=== PATIENT | male | born 1970 | race Caucasian/White ===

== ENCOUNTER 2017-07-17 10:50 | Inpatient (IN) | payer MEDICARE ==
[2017-07-17] MEDS ORDERED: SODIUM CHLORIDE 0.9% 1,000 ML IV STA ×2 (11:49)
--- NOTE | 2017-07-17 11:54 | ED ---
General Adult HPI - General Chief complaint: Psychiatric Symptoms Stated complaint: WEIGHTLOSS, NOT EATING Time Seen by Provider: 07/17/17 11:26 Source: patient, family, RN notes reviewed Mode of arrival: wheelchair Limitations: physical limitation - History of Present Illness Initial comments: Patient is a pleasant 46-year-old male presenting to the emergency Department with family. There is concerned the patient has not been eating. Patient does admit to not eating for the past 52 days. Patient states he was trying to make a 0.2 a group of people. Patient states he stopped eating so they would leave him alone and stop bothering him. Patient states they did not stop bothering him so he continued to not eat. Patient has only had water intake over the past 52 days. Patient states he told them if they did not stop bothering him he would continue to not eat until he . Patient admits to feeling generally weak. Patient has muscle spasms. Patient is only able to walk a couple of feet. Patient has dark black urine. Patient denies suicidal ideation however does state that he would continue this until he . Brother adds that patient does have a history of similar problems previously once associated with psychiatric problems. Patient previously had denied this. Brother states patient has been acting paranoid and feels there is electrodes in his brain. - Related Data Home Medications Medication Instructions Recorded Confirmed Doxazosin [Cardura] 1 mg PO DAILY 07/17/17 07/17/17 Morphine Sulfate [Morphine Sulfate 30 mg PO TID 07/17/17 07/17/17 ER] predniSONE 12.5 mg PO DAILY 07/17/17 07/17/17 Allergies Allergy/AdvReac Type Severity Reaction Status Date / Time No Known Allergies Allergy Verified 07/17/17 11:39 Review of Systems ROS Statement: Those systems with pertinent positive or pertinent negative responses have been documented in the HPI. ROS Other: All systems not noted in ROS Statement are negative. Constitutional: Denies: fever Eyes: Denies: eye pain ENT: Denies: ear pain Respiratory: Denies: cough Cardiovascular: Denies: chest pain Endocrine: Reports: fatigue Gastrointestinal: Denies: abdominal pain Genitourinary: Denies: dysuria Musculoskeletal: Denies: back pain Skin: Denies: rash Neurological: Reports: weakness (Generalized) Past Medical History Additional Past Medical History / Comment(s): back pain History of Any Multi-Drug Resistant Organisms: None Reported Past Surgical History: Back Surgery, Tonsillectomy Past Anesthesia/Blood Transfusion Reactions: No Reported Reaction Past Psychological History: Depression Smoking Status: Former smoker Past Alcohol Use History: None Reported Past Drug Use History: None Reported General Exam Limitations: physical limitation General appearance: alert, cachectic Head exam: Present: atraumatic Eye exam: Present: normal appearance, PERRL ENT exam: Present: normal oropharynx Neck exam: Present: normal inspection Respiratory exam: Present: normal lung sounds bilaterally Cardiovascular Exam: Present: tachycardia GI/Abdominal exam: Present: soft. Absent: distended, tenderness Extremities exam: Present: normal inspection Neurological exam: Present: alert. Absent: motor sensory deficit Psychiatric exam: Present: normal affect, normal mood Skin exam: Present: normal color Course Vital Signs 07/17/17 07/17/17 07/17/17 11:06 12:54 13:35 Temperature 97.7 F 98.1 F Pulse Rate 154 H 84 87 Respiratory 18 18 16 Rate Blood Pressure 114/80 132/81 121/82 O2 Sat by Pulse 100 94 L 100 Oximetry EKG Findings - EKG Comments: EKG Findings:: Sinus tachycardia 139. NV 136. QRS 90. QT 36. QTc 435. Normal axis. Inferior Q waves. No acute ST change. Medical Decision Making - Medical Decision Making Patient reevaluated and updated. Case was discussed in detail with Dr. Jung, who will admit for hospital call. Further evaluation will need to be done in the liver. Consult placed for GI and psychiatry. - Lab Data Result diagrams: 07/17/17 11:21 07/17/17 11:21 Lab Results 07/17/17 07/17/17 07/17/17 Range/Units 11:21 11:21 11:21 WBC 14.1 H (3.8-10.6) k/uL RBC 5.50 (4.30-5.90) m/uL Hgb 16.0 (13.0-17.5) gm/dL Hct 48.3 (39.0-53.0) % MCV 87.8 (80.0-100.0) fL MCH 29.0 (25.0-35.0) pg MCHC 33.1 (31.0-37.0) g/dL RDW 14.0 (11.5-15.5) % Plt Count 472 H (150-450) k/uL Neutrophils % 83 % Lymphocytes % 11 % Monocytes % 5 % Eosinophils % 0 % Basophils % 0 % Neutrophils # 11.7 H (1.3-7.7) k/uL Lymphocytes # 1.5 (1.0-4.8) k/uL Monocytes # 0.6 (0-1.0) k/uL Eosinophils # 0.1 (0-0.7) k/uL Basophils # 0.1 (0-0.2) k/uL PT 12.3 H (9.0-12.0) sec INR 1.2 H (<1.2) APTT 28.4 (22.0-30.0) sec Sodium 133 L (137-145) mmol/L Potassium 3.3 L (3.5-5.1) mmol/L Chloride 81 L (98-107) mmol/L Carbon Dioxide 19 L (22-30) mmol/L Anion Gap 33 mmol/L BUN 24 H (9-20) mg/dL Creatinine 1.22 (0.66-1.25) mg/dL Est GFR (MDRD) Af Amer >60 (>60 ml/min/1.73 sqM) Est GFR (MDRD) Non-Af >60 (>60 ml/min/1.73 sqM) Glucose 180 H (74-99) mg/dL Calcium 10.1 (8.4-10.2) mg/dL Ionized Calcium Elodia 4.0 L (4.5-5.3) mg/dL Phosphorus 4.0 (2.5-4.5) mg/dL Magnesium 2.6 H (1.6-2.3) mg/dL Total Bilirubin 5.6 H (0.2-1.3) mg/dL AST 273 H (17-59) U/L ALT 125 H (21-72) U/L Alkaline Phosphatase 2131 H (38-126) U/L Creatine Kinase (55-170) U/L Total Protein 7.7 (6.3-8.2) g/dL Albumin 4.7 (3.5-5.0) g/dL Lipase (23-300) U/L TSH 0.467 (0.465-4.680) mIU/L Serum Alcohol <10 mg/dL 07/17/17 07/17/17 Range/Units 11:21 11:21 WBC (3.8-10.6) k/uL RBC (4.30-5.90) m/uL Hgb (13.0-17.5) gm/dL Hct (39.0-53.0) % MCV (80.0-100.0) fL MCH (25.0-35.0) pg MCHC (31.0-37.0) g/dL RDW (11.5-15.5) % Plt Count (150-450) k/uL Neutrophils % % Lymphocytes % % Monocytes % % Eosinophils % % Basophils % % Neutrophils # (1.3-7.7) k/uL Lymphocytes # (1.0-4.8) k/uL Monocytes # (0-1.0) k/uL Eosinophils # (0-0.7) k/uL Basophils # (0-0.2) k/uL PT (9.0-12.0) sec INR (<1.2) APTT (22.0-30.0) sec Sodium (137-145) mmol/L Potassium (3.5-5.1) mmol/L Chloride (98-107) mmol/L Carbon Dioxide (22-30) mmol/L Anion Gap mmol/L BUN (9-20) mg/dL Creatinine (0.66-1.25) mg/dL Est GFR (MDRD) Af Amer (>60 ml/min/1.73 sqM) Est GFR (MDRD) Non-Af (>60 ml/min/1.73 sqM) Glucose (74-99) mg/dL Calcium (8.4-10.2) mg/dL Ionized Calcium Elodia (4.5-5.3) mg/dL Phosphorus (2.5-4.5) mg/dL Magnesium (1.6-2.3) mg/dL Total Bilirubin (0.2-1.3) mg/dL AST (17-59) U/L ALT (21-72) U/L Alkaline Phosphatase (38-126) U/L Creatine Kinase 34 L (55-170) U/L Total Protein (6.3-8.2) g/dL Albumin (3.5-5.0) g/dL Lipase 610 H (23-300) U/L TSH (0.465-4.680) mIU/L Serum Alcohol mg/dL - Radiology Data Radiology results: image reviewed (Chest x-ray shows no acute process) Disposition Clinical Impression: Starvation, Acute liver failure, Acute psychosis Disposition: [facility] Condition: Serious Referrals: Abhinav Case DO [Primary Care Provider] - 1-2 days Decision Time: 14:42
--- NOTE | 2017-07-17 12:17 | XR ---
EXAMINATION TYPE: XR chest 2V DATE OF EXAM: 07/17/2017 COMPARISON: NONE HISTORY: Weakness TECHNIQUE: Frontal and lateral views of the chest are obtained. FINDINGS: There are overlying cardiac leads. Cardiomediastinal silhouette, pulmonary vascularity and otto within normal limits. No airspace disease, pneumothorax, or pleural effusion. IMPRESSION: No acute cardiopulmonary process.
[2017-07-17 12:19] LABS: Basophils # (A) 0.1 k/uL (0-0.2); Basophils % (A) 0 %; CH 30.1; CHCM 34.5; Eosinophils # (A) 0.1 k/uL (0-0.7); Eosinophils % (A) 0 %; HCT 48.3 % (39.0-53.0); HDW 2.73; Luc # (Auto) 0.12; Luc % (Auto) 1; Lymphocytes # (A) 1.5 k/uL (1.0-4.8); Lymphocytes % (A) 11 %; MCHC 33.1 g/dL (31.0-37.0); MCV 87.8 fL (80.0-100.0); Mean Platelet Volume 7.2; Monocytes # (A) 0.6 k/uL (0-1.0); Monocytes % (A) 5 %; Neutrophils # (A) 11.7 k/uL (1.3-7.7); Neutrophils % (A) 83 %; WBC 14.1 k/uL (3.8-10.6); WBC (Perox) 14.59
[2017-07-17 12:23] LABS: INR 1.2 (<1.2); Prothrombin Time 12.3 sec (9.0-12.0)
[2017-07-17 12:40] LABS: Partial Thromboplastin Time 28.4 sec (22.0-30.0)
[2017-07-17] MEDS ORDERED: CALCIUM CARB-VIT D 500MG-200UN 1 EACH TAB PO ONE (12:47)
[2017-07-17 12:50] LABS: ALT 125 U/L (21-72); AST 273 U/L (17-59); Alcohol <10 mg/dL; Anion Gap 33 mmol/L; Blood Urea Nitrogen 24 mg/dL (9-20); Calcium 10.1 mg/dL (8.4-10.2); Carbon Dioxide 19 mmol/L (22-30); Chloride 81 mmol/L (98-107); Glucose 180 mg/dL (74-99); Magnesium 2.6 mg/dL (1.6-2.3); Non-African American GFR(MDRD) >60 (>60 ml/min/1.73 sqM); Potassium 3.3 mmol/L (3.5-5.1); Sodium 133 mmol/L (137-145); Total Bilirubin 5.6 mg/dL (0.2-1.3); Total Protein 7.7 g/dL (6.3-8.2)
[2017-07-17 12:56] LABS: Alkaline Phosphatase 2131 U/L (38-126)
[2017-07-17] MEDS ORDERED: IBUPROFEN 400 MG TAB PO PRN (13:55)
[2017-07-17] MEDS ORDERED: POTASSIUM CHLORIDE 20 MEQ in WATER FOR INJECTION 1 100ML.BAG IVPB SCH (14:30)
[2017-07-17] MEDS ORDERED: NALOXONE 0.4 MG/ML 1 ML VIAL IV PRN (14:45)
[2017-07-17] MEDS ORDERED: SODIUM CHLORIDE 0.9% 1,000 ML IV ONE (15:09)
[2017-07-17] MEDS: SODIUM CHLORIDE 0.9% 1,000 ML IV SCH (15:15)
--- NOTE | 2017-07-17 15:39 | US ---
EXAMINATION TYPE: US abdomen limited DATE OF EXAM: 07/17/2017 COMPARISON: NONE CLINICAL HISTORY: transaminitis . Extremely limited and difficult exam due to overlying bowel gas EXAM MEASUREMENTS: Liver Length: 14.2 cm Gallbladder Wall: 0.5 cm CBD: 0.5 cm Right Kidney: 9.8 x 6.1 x 6.4 cm Pancreas: Obscured by bowel gas Liver: Limited evaluation due to overlying bowel gas and patient body habitus Gallbladder: Echogenic debris visualized within the gallbladder, gallbladder wall is thickened Evidence for sonographic Mendoza's sign: No CBD: wnl as visualized, distal portion obscured by bowel gas Right Kidney: Cystic area visualized mid pole measuring 2.9 x 2.4 x 2.2 cm IMPRESSION: Limited exam. Correlate for cholecystitis. Cystic lesion right kidney, follow-up recommen ded.
[2017-07-17] MEDS ORDERED: MORPHINE SULFATE ER 15 MG TABLET PO STA (15:40)
[2017-07-17] MEDS: ONDANSETRON 4 MG/2 ML VIAL IVP PRN (15:45)
--- NOTE | 2017-07-17 15:46 | P.HPIM ---
History of Present Illness H&P Date: 07/17/17 Chief Complaint: Brought here by family with complaints of delusions The patient is a 46-year-old male with a past history of schizophrenia who presents to the ER via private vehicle under the current her vision of his family. The family reports the patient has been acting increasingly paranoid and has not been eating over the last 52 days, they first noticed a change in his behavior 2 weeks to a month ago, they report the patient has been increasingly withdrawn has not been as communicative via phone calls or text messages, and has become increasingly agitated and disheveled. He reports that the patient has been hearing voices. The patient is slightly agitated but is relatively pleasant, he reports some paranoid delusions of being monitored by [employer] agents are interested in him because of a special brainwave that he posesses. He reports that these government agents are monitoring him from across the street. He reports that they placed a implantable device in his skull several years ago and have been able to translate his thoughts into text without him speaking. The patient reports that he is attempting to prove a point to these government rogue agents that he can commit suicide by not eating, he does report some episodes of nausea and vomiting. But otherwise has no somatic complaints Other than chronic back pain for which he takes morphine. The patient reports that approximately 50 pound weight loss and reports that his urine is tea colored. In the ER spoke to his family who are concerned, they have completed a usp form. Past Medical History Additional Past Medical History / Comment(s): back pain History of Any Multi-Drug Resistant Organisms: None Reported Past Surgical History: Back Surgery, Tonsillectomy Past Anesthesia/Blood Transfusion Reactions: No Reported Reaction Past Psychological History: Depression Smoking Status: Former smoker Past Alcohol Use History: None Reported Past Drug Use History: None Reported Medications and Allergies Home Medications Medication Instructions Recorded Confirmed Type Doxazosin [Cardura] 1 mg PO DAILY 07/17/17 07/17/17 History Morphine Sulfate [Morphine Sulfate 30 mg PO TID 07/17/17 07/17/17 History ER] predniSONE 12.5 mg PO DAILY 07/17/17 07/17/17 History Allergies Allergy/AdvReac Type Severity Reaction Status Date / Time No Known Allergies Allergy Verified 07/17/17 11:39 Physical Exam Vitals: Vital Signs Temp Pulse Resp BP Pulse Ox 07/17/17 15:16 102 H 18 117/84 100 07/17/17 13:35 98.1 F 87 16 121/82 100 07/17/17 12:54 84 18 132/81 94 L 07/17/17 11:06 97.7 F 154 H 18 114/80 100 Intake and Output 07/17/17 07/17/17 07/17/17 06:59 14:59 22:59 Other: Weight 77.428 kg Patient Weight 07/18/17 06:59 Weight 77.428 kg Constitutional: , conversant, pleasant Eyes: Anicteric sclerae, moist conjunctiva, no lid-lag, PERRLA ENMT: NC/AT,Oropharynx clear, no erythema, exudates, dry mucous membranes Neck:Supple, FROM, no masses, or JVD, No carotid bruits; No thyromegaly Lungs: Clear to auscultation, Clear to percussion, Normal respiratory effort, no accessory muscle use Cardiovascular: Heart regular in rate and rhythm, No murmurs, gallops, or rubs no peripheral edema Abdominal: Soft Nontender, nom distended, no guarding, no rebound or rigidity, Normoactive bowel sounds No hepatomegaly, No splenomegaly, No palpable mass No abdominal wall hernia noted Skin: Normal temperature, tone, texture, and increased skin tenting, No induration No subcutaneous nodules, No rash, lesions, No ulcers Extremities:No digital cyanosis No clubbing, Pedal pulses intact and symmetrical Radial pulses intact and symmetrical Normal gait and station, No calf tenderness Psychiatric: Alert and oriented to person, place and time, anxious, disheveled, paranoid Neuro: Muscles Strength 5/5 in all 4 extremities, Sensation to light touch grossly present throughout, Cranial nerves II-XII grossly intact. No focal sensory deficits Results CBC & Chem 7: 07/17/17 11:21 07/17/17 11:21 Labs: Abnormal Lab Results - Last 24 Hours (Table) 07/17/17 07/17/17 07/17/17 Range/Units 11:21 11:21 11:21 WBC 14.1 H (3.8-10.6) k/uL Plt Count 472 H (150-450) k/uL Neutrophils # 11.7 H (1.3-7.7) k/uL PT 12.3 H (9.0-12.0) sec INR 1.2 H (<1.2) Sodium 133 L (137-145) mmol/L Potassium 3.3 L (3.5-5.1) mmol/L Chloride 81 L (98-107) mmol/L Carbon Dioxide 19 L (22-30) mmol/L BUN 24 H (9-20) mg/dL Glucose 180 H (74-99) mg/dL Ionized Calcium Elodia 4.0 L (4.5-5.3) mg/dL Magnesium 2.6 H (1.6-2.3) mg/dL Total Bilirubin 5.6 H (0.2-1.3) mg/dL AST 273 H (17-59) U/L ALT 125 H (21-72) U/L Alkaline Phosphatase 2131 H (38-126) U/L Creatine Kinase (55-170) U/L Lipase (23-300) U/L 07/17/17 07/17/17 Range/Units 11:21 11:21 WBC (3.8-10.6) k/uL Plt Count (150-450) k/uL Neutrophils # (1.3-7.7) k/uL PT (9.0-12.0) sec INR (<1.2) Sodium (137-145) mmol/L Potassium (3.5-5.1) mmol/L Chloride (98-107) mmol/L Carbon Dioxide (22-30) mmol/L BUN (9-20) mg/dL Glucose (74-99) mg/dL Ionized Calcium Elodia (4.5-5.3) mg/dL Magnesium (1.6-2.3) mg/dL Total Bilirubin (0.2-1.3) mg/dL AST (17-59) U/L ALT (21-72) U/L Alkaline Phosphatase (38-126) U/L Creatine Kinase 34 L (55-170) U/L Lipase 610 H (23-300) U/L Assessment and Plan (1) Dehydration with hyponatremia Status: Acute (2) Leukocytosis Status: Acute (3) Hypokalemia Status: Acute (4) Transaminitis Status: Acute (5) Schizophrenia, chronic with acute exacerbation Status: Acute Plan: The patient is admitted to the medical floor anticipate a greater than TWO midnight stay, with severe dehydration with hyponatremia hypokalemia secondary to acute schizophrenia exacerbation. The patient is started on fluids, regular diet with antiemetics and electrolyte supplementation. We'll workup his transaminitis and abnormal liver studies with a right upper quadrant ultrasound to rule out any hepatobiliary disorder, with his leukocytosis we'll check a blood culture and urinalysis. We'll also check HIV and acute hepatitis panel. We'll consult psychiatry for further recommendations, the patient will likely need to be transferred to medical health unit after he is clinically medically stable.
[2017-07-17] MEDS: MORPHINE SULFATE ER 30 MG TABLET PO SCH ×2 (16:35→22:28)
[2017-07-17] MEDS ORDERED: POTASSIUM CHLORIDE 20 MEQ, LIDOCAINE 2% INJ 20 MG in SODIUM CHLORIDE 0.9% 100 ML IVPB ONE (17:00)
[2017-07-17] MEDS ORDERED: POTASSIUM CHLORIDE 20 MEQ, LIDOCAINE 2% INJ 20 MG in SODIUM CHLORIDE 0.9% 100 ML IVPB SCH (18:00)
[2017-07-17 20:15] LABS: Amorphous Sediment,Urine Rare /hpf; Appearance,Urine Turbid (Clear); Bacteria,Urine Many /hpf; Bilirubin,Urine 2+ (Negative); Glucose,Urine (UA) Negative (Negative); Ketones,Urine 3+ (Negative); Leukocyte Esterase,Urine Moderate (Negative); Mucus,Urine Many /hpf; Nitrite,Urine Negative (Negative); Particle Count 68208; Protein,Urine 2+ (Negative); RBC,Urine >182 /hpf (0-5); Specific Gravity,Urine 1.017 (1.001-1.035); UA Billing (MACRO vs. MICRO) MICRO; WBC,Urine 30 /hpf (0-5)
[2017-07-18] MEDS: SODIUM CHLORIDE 0.9% 1,000 ML IV SCH ×5 (04:03→17:24)
[2017-07-18] MEDS: ONDANSETRON 4 MG/2 ML VIAL IVP PRN (04:06)
[2017-07-18] MEDS: MORPHINE SULFATE ER 30 MG TABLET PO SCH ×2 (08:34→15:44)
[2017-07-18] MEDS: PANTOPRAZOLE 40 MG/10 ML VIAL IV SCH ×2 (08:36→08:41)
[2017-07-18] MEDS: DOXAZOSIN 1 MG TAB PO SCH ×2 (08:36→08:37)
[2017-07-18 08:54] LABS: Basophils % (A) 0 %; CH 29.9; CHCM 34.3; Eosinophils % (A) 0 %; HCT 35.1 % (39.0-53.0); HDW 2.72; Luc # (Auto) 0.07; Luc % (Auto) 1; Lymphocytes # (A) 1.1 k/uL (1.0-4.8); Lymphocytes % (A) 18 %; MCH 28.8 pg (25.0-35.0); MCHC 32.9 g/dL (31.0-37.0); MCV 87.7 fL (80.0-100.0); Mean Platelet Volume 6.9; Monocytes # (A) 0.4 k/uL (0-1.0); Monocytes % (A) 6 %; Neutrophils # (A) 4.6 k/uL (1.3-7.7); Neutrophils % (A) 74 %; RDW 13.8 % (11.5-15.5); WBC 6.1 k/uL (3.8-10.6); WBC (Perox) 6.32
[2017-07-18 09:02] LABS: HGB 11.5 gm/dL (13.0-17.5)
[2017-07-18 09:26] LABS: ALT 146 U/L (21-72); AST 396 U/L (17-59); Alkaline Phosphatase 1343 U/L (38-126); Anion Gap 13 mmol/L; Blood Urea Nitrogen 22 mg/dL (9-20); Calcium 8.3 mg/dL (8.4-10.2); Carbon Dioxide 27 mmol/L (22-30); Chloride 94 mmol/L (98-107); Glucose 116 mg/dL (74-99); Non-African American GFR(MDRD) >60 (>60 ml/min/1.73 sqM); Potassium 3.1 mmol/L (3.5-5.1); Sodium 134 mmol/L (137-145); Total Bilirubin 2.7 mg/dL (0.2-1.3); Total Protein 5.5 g/dL (6.3-8.2)
[2017-07-18] MEDS ORDERED: RX INFO: IV CONTRAST WAS GIVEN 1 EACH MISC MISCELLANE PRN (10:45)
[2017-07-18] MEDS ORDERED: IOHEXOL 350 MG/ML 25 ML BOTTLE (ORAL USE) PO PRN (10:45)
[2017-07-18] MEDS: CEPHALEXIN 500 MG CAP PO SCH ×2 (10:46→21:53)
[2017-07-18] MEDS ORDERED: Potassium Replacement Protocol 1 EACH MISC MISCELLANE PRN (10:57)
[2017-07-18] MEDS: POTASSIUM CHLORIDE 10 MEQ, LIDOCAINE 2% INJ 10 MG in SODIUM CHLORIDE 0.9% 100 ML IVPB SCH ×2 (11:53→13:43)
--- NOTE | 2017-07-18 12:48 | P.PN ---
Subjective Progress Note Date: 07/18/17 Objective - Vital Signs Vital signs: Vital Signs Temp 96.5 F L 07/18/17 07:00 Pulse 77 07/18/17 08:00 Resp 16 07/18/17 08:00 BP 122/77 07/18/17 07:00 Pulse Ox 98 07/18/17 11:49 Intake & Output 07/17/17 07/18/17 07/18/17 18:59 06:59 18:59 Intake Total 2000 Output Total 200 800 Balance 1999200 -800 Weight 77.428 kg Intake: Amount of Fluid Infused ( 2000 ml) Output: Urine 200 Emesis 800 Other: Voiding Method Urinal - Exam Constitutional: No acute distress, conversant, pleasant Eyes: Anicteric sclerae, moist conjunctiva, no lid-lag, PERRLA ENMT: NC/AT,Oropharynx clear, no erythema, exudates Neck:Supple, FROM, no masses, or JVD, No carotid bruits; No thyromegaly Lungs: Clear to auscultation, Clear to percussion, Normal respiratory effort, no accessory muscle use Cardiovascular: Heart regular in rate and rhythm, No murmurs, gallops, or rubs no peripheral edema Abdominal: Soft tender to palpation right upper quadrant, nom distended, no guarding, no rebound or rigidity, Normoactive bowel sounds No hepatomegaly, No splenomegaly, No palpable mass No abdominal wall hernia noted Skin: Normal temperature, tone, texture, turgor, No induration No subcutaneous nodules, No rash, lesions, No ulcers Extremities:No digital cyanosis No clubbing, Pedal pulses intact and symmetrical Radial pulses intact and symmetrical Normal gait and station, No calf tenderness Psychiatric: Alert and oriented to person, place and time, Appropriate affect Intact judgement Neuro: Muscles Strength 5/5 in all 4 extremities, Sensation to light touch grossly present throughout, Cranial nerves II-XII grossly intact. No focal sensory deficits - Labs CBC & Chem 7: 07/18/17 08:02 07/18/17 08:02 Labs: Abnormal Lab Results - Last 24 Hours (Table) 07/17/17 07/17/17 07/17/17 Range/Units 11:21 11:21 11:21 RBC (4.30-5.90) m/uL Hgb (13.0-17.5) gm/dL Hct (39.0-53.0) % Sodium 133 L (137-145) mmol/L Potassium 3.3 L (3.5-5.1) mmol/L Chloride 81 L (98-107) mmol/L Carbon Dioxide 19 L (22-30) mmol/L BUN 24 H (9-20) mg/dL Glucose 180 H (74-99) mg/dL Calcium (8.4-10.2) mg/dL Magnesium 2.6 H (1.6-2.3) mg/dL Total Bilirubin 5.6 H (0.2-1.3) mg/dL AST 273 H (17-59) U/L ALT 125 H (21-72) U/L Alkaline Phosphatase 2131 H (38-126) U/L Creatine Kinase 34 L (55-170) U/L Total Protein (6.3-8.2) g/dL Albumin (3.5-5.0) g/dL Lipase 610 H (23-300) U/L Urine Protein (Negative) Urine Ketones (Negative) Urine Blood (Negative) Urine Bilirubin (Negative) Ur Leukocyte Esterase (Negative) Urine RBC (0-5) /hpf Urine WBC (0-5) /hpf Amorphous Sediment (None) /hpf Urine Bacteria (None) /hpf Urine Mucus (None) /hpf Urine Opiates Screen (NotDetected) U Marijuana (THC) Screen (NotDetected) 07/17/17 07/18/17 07/18/17 Range/Units 20:00 08:02 08:02 RBC 4.00 L (4.30-5.90) m/uL Hgb 11.5 L D (13.0-17.5) gm/dL Hct 35.1 L (39.0-53.0) % Sodium 134 L (137-145) mmol/L Potassium 3.1 L (3.5-5.1) mmol/L Chloride 94 L (98-107) mmol/L Carbon Dioxide (22-30) mmol/L BUN 22 H (9-20) mg/dL Glucose 116 H (74-99) mg/dL Calcium 8.3 L (8.4-10.2) mg/dL Magnesium (1.6-2.3) mg/dL Total Bilirubin 2.7 H (0.2-1.3) mg/dL AST 396 H (17-59) U/L ALT 146 H (21-72) U/L Alkaline Phosphatase 1343 H (38-126) U/L Creatine Kinase (55-170) U/L Total Protein 5.5 L (6.3-8.2) g/dL Albumin 3.0 L (3.5-5.0) g/dL Lipase (23-300) U/L Urine Protein 2+ H (Negative) Urine Ketones 3+ H (Negative) Urine Blood Large H (Negative) Urine Bilirubin 2+ H (Negative) Ur Leukocyte Esterase Moderate H (Negative) Urine RBC >182 H (0-5) /hpf Urine WBC 30 H (0-5) /hpf Amorphous Sediment Rare H (None) /hpf Urine Bacteria Many H (None) /hpf Urine Mucus Many H (None) /hpf Urine Opiates Screen Detected H (NotDetected) U Marijuana (THC) Screen Detected H (NotDetected) - Imaging and Cardiology US - abdomen: report reviewed (Limited exam currently for cholecystitis, gallbladder bladder wall was thickened with evidence of sonographic Mendoza sign) Assessment and Plan (1) Sepsis Narrative/Plan: * Secondary to UTI versus acute cholecystitis urine cultures sent, initiated on oral Keflex today, afebrile leukocytosis resolved * General surgery consulted to evaluate for lap cholecystectomy Status: Acute (2) Dehydration with hyponatremia Narrative/Plan: * Continue with IV fluids increase fluids to 1 50 mL per hour of normal saline Status: Acute (3) Hypokalemia Narrative/Plan: * Potassium still low we'll replace and recheck tomorrow Status: Acute (4) Transaminitis Narrative/Plan: * GI consult pending, hep panel HIV ordered, right upper quadrant ultrasound suggestive of possible acute cholecystitis Status: Acute (5) Schizophrenia, chronic with acute exacerbation Narrative/Plan: * Awaiting psychiatry consult Status: Acute
--- NOTE | 2017-07-18 13:19 | CT ---
EXAMINATION TYPE: CT abdomen pelvis w con DATE OF EXAM: 07/18/2017 REFERENCE: Previous ultrasound dated 07/17/2017 HISTORY: elevated LFT HISTORY: Elevated liver enzymes, poss. gall bladder issues-per patient REFERENCE: NONE CT DLP: 764.80 mGy Automated exposure control for dose reduction was used. TECHNIQUE: Helical acquisition through the abdomen and pelvis was obtained following the oral ingesti on of with Oral Contrast and following intravenous administration of 100 mL of Omnipaque 300. The meka a was reformatted in axial, coronal and sagittal projections. FINDINGS: Visualized portions of the lungs are clear. There is no pleural or pericardial fluid. The heart is not enlarged. Within the abdomen, the liver is normal in size. The liver is mildly fatty infiltrated. The spleen is normal. The gallbladder is unremarkable. I do not see evidence of pericholecystic fluid. Both adrenal glands are normal. There is a simple appearing, 4.2 cm exophytic cyst seen arising from the lower pole of the left kidne y. There is a second, simple appearing, 2.6 cm lesion arising from the upper pole of the left kidney. There is a 2.7 cm medullary cyst seen arising from the mid polar region of the right kidney. The pancreas is mildly fatty infiltrated. There is no significant retroperitoneal, inguinal or iliac adenopathy. The bladder is not distended. There is a small calcification present at the level of the right ureter ovesicular junction. There is no associated hydroureter. This measures approximately 4 mm. There is no significant diverticular change and there is no evidence of diverticulitis. The appendix is normal. Small bowel loops are normal in caliber. No free fluid and no free air is seen. There is been a previous interpedicular fusion at L5-S1. A sclerotic focus in the right femoral neck is likely a bone island. No bony destructive lesion is seen. IMPRESSION: 1. FATTY INFILTRATION OF THE LIVER. 2. SIMPLE APPEARING BILATERAL RENAL CYSTS. 3. CALCIFICATION AT THE LEVEL OF THE RIGHT UVJ MAY REPRESENT A CALCULUS WHICH IS NONOBSTRUCTING. 4. POSTSURGICAL CHANGES WITHIN THE SPINE.
--- NOTE | 2017-07-18 13:33 | CONS ---
CONSULTATION DATE OF SERVICE: 07/18/17 REQUESTING PHYSICIAN: Dr. Abhinav Iraheta. REASON FOR CONSULTATION: Elevated LFTs. HISTORY OF PRESENT ILLNESS: The patient is a 46-year-old pleasant white male who was admitted to the hospital with history of schizophrenia, was admitted to the hospital because of progressive weakness, nausea, vomiting, not feeling well for the last several days duration. The patient states that he has not been eating for the last 52 days duration and about 2 weeks ago started having abdominal discomfort, nausea, vomiting, and not feeling well. He came to the emergency room. He was noted to have elevated serum transaminases and elevated bilirubin and alkaline phosphatase and hence we are consulted in regards to this issue. The patient denies any liver disease in the past. No history of jaundice or hepatitis. No history of intravenous drug use. He denies any new medications that were started recently. He denies any recent travel history. Reports no alcohol use. Does not recall having any chronic liver disease in the past. PAST MEDICAL HISTORY: Significant for schizophrenia. PAST SURGICAL HISTORY: Tonsillectomy and back surgery. MEDICATIONS: At home: 1. Morphine sulfate. 2. Cardura. 3. Prednisone. ALLERGIES: None. SOCIAL HISTORY: No smoking or alcohol use. FAMILY HISTORY: Unremarkable. REVIEW OF SYSTEMS: Cardiopulmonary: No chest pain, shortness of breath. Genitourinary: No dysuria or hematuria. Musculoskeletal: Unremarkable. Skin: Unremarkable. Endocrine: Unremarkable. Psychiatric: History of schizophrenia but he states he is not on any medications recently. Neurology: Unremarkable. ENT/ vision: Unremarkable. Constitutional: No recent weight loss. No fevers, chills or night sweats. PHYSICAL EXAMINATION: He appears comfortable. No apparent distress. VITAL SIGNS: Stable. Blood pressure is 114/75, pulse rate 86, temperature 98.5. HEENT examination unremarkable. Conjunctivae pink. Sclerae anicteric. Oral cavity no lesions. Neck: No JVD or lymph node enlargement. CHEST: Clear to auscultation. HEART: Regular rate and rhythm. ABDOMEN: Soft. Bowel sounds are positive. No organomegaly. Extremities: No pedal edema. Skin: No rashes. Neuro: She is alert and oriented x3. No focal deficits. LABS: Done at the time of admission to the hospital: WBC 6.1, hemoglobin 11.5, platelets are normal. T-bili 5.6, AST is 273, ALT is 125, alkaline phosphatase is 2131, today alkaline phosphatase is down to 1343, T bili down to 2.7, AST 396, ALT is 146, lipase is slightly up at 610. INR is 1.2. IMPRESSION: This is a patient who presents to the hospital with schizophrenia, presently on no antipsychotic medications, presents to the hospital with nausea, vomiting, abdominal discomfort, not feeling well for the last 2 weeks duration. He states that he has been starving for 52 days. However, the patient does have schizophrenia as mentioned above. He is noted to have elevated serum transaminases with significant elevation of alkaline phosphatase and T-bilirubin consistent with intrahepatic cholestasis. He did have ultrasound of the gallbladder done and that showed no evidence of gallstones or acute cholecystitis and no biliary ductal dilation. So most likely we are dealing with intrahepatic pancreatic cholestasis, probably medication related, but on further questioning, patient denies taking any medications other than prednisone, Cardura, and some morphine sulfate. None of which are likely to cause any medication induced hepatitis. Hence at this time, we will proceed with further workup for chronic liver disease and also obtain a CT of the abdomen, pelvis to investigate further. RECOMMENDATIONS: 1. CT of the abdomen and pelvis. 2. Workup for chronic liver disease. 3. Repeat labs in the morning and will follow up closely during hospital stay. Thank you for this consultation. MMODL / IJN: [id number] /
--- NOTE | 2017-07-18 22:04 | P.CN ---
Psychiatric Consult - . Consult date: 07/18/17 Consult:: 07/18/17 21:43 IDENTIFYING DATA: 46-year-old male patient HPI: Patient admitted to the medical floor [facility] with concerns of him not eating for the last 52 days. Per chart history was admitted with dehydration/hyponatremia, hypokalemia, leukocytosis and transaminitis. Per chart history the patient was not eating for the last 52 days, there is notation in the chart about increased paranoia, increased agitation and disheveled. Per chart history of change in behavior over the past 2 weeks including more withdrawn. Per chart history there is notation regarding patient having thoughts about being monitored by government agents. The patient states "I don't want to get into it." He says that he got caught starving himself to , was trying to make a point to some people regarding committing suicide to get off a certain device. He makes reference to this is the third time that they have done this to him and he does relate he went from 230 pounds to 170 pounds. He makes reference to starving himself for 103 days. Patient states that he started eating again, and relays is eating in the hospital. He says he was hoping at one point that his parents would find him but doesn't feel that way now. He says he came here for his family to get healthy. He relates that he is not open to getting back on psychotropic medication. There is a petition by a family member on the chart. PAST PSYCHIATRIC HISTORY: Patient does of her previous admission to the inpatient psychiatric unit [facility] in August 2014. At that time the impression was psychosis NOS. And mood disorder secondary to general medical condition. He was discharged on Risperdal 1 mg daily and to monitor bedtime, Cymbalta 20 mg twice a day, trazodone 100 mg at bedtime and Neurontin 100 mg 3 times a day. Per chart history has also been on Elavil and Zoloft in the past. He relays "5 years ago they did it to me," and relays that it sent him to the psych aguilar for the first time. He denies any recent outpatient treatment. PMH: Back pain, back surgery, tonsillectomy, spinal stenosis ALLERGIES: No known ALLERGIES MEDICATIONS: Keflex, Cardura, milk of magnesia when necessary, MS David, Narcan when necessary, Zofran when necessary, Protonix CHEMICAL DEPENDENCY HISTORY: Denies FAMILY PSYCHIATRIC HISTORY: None known FAMILY CHEMICAL DEPENDENCY HISTORY: None known at this time SOCIAL HISTORY: Not known MENTAL STATUS EXAM: He is alert, found in his room lying in bed. He was about to brush his teeth. Patient relates several times during the interview that he 'doesn't feel like getting into it' so not as much information is gathered. He denies any current suicidal ideations. He says he didn't have any to begin with. He has not verbalize any thoughts of harm to others. There is evidence of some persecutory thought content. He makes reference to trying to make a point to some people to get off a certain device, he was starving himself. He made reference to this is the third time they have done this to him. He does not show any significant agitation. IMPRESSIONS: Unspecified psychotic disorder PLAN: Would recommend inpatient psychiatric hospitalization after medical stabilization. At this time patient does not seem to be agreeable to treatment and relays that he is not open to getting back on psychotropic medication. It is noted that there is a petition on the chart by family member. Patient is still being medically stabilized. Patient should not be allowed to leave the hospital AMA as he will need further psychiatric stabilization. Concerns of him having started himself for a significant period of time with 60 pound weight loss and concern of psychosis symptoms. He does relate that he got caught starving himself to . Psychiatry to follow up with him on the medical floor.
[2017-07-18] MEDS: POTASSIUM CHLORIDE ER 20 MEQ TAB.ER PO SCH (22:53)
[2017-07-19] MEDS: MORPHINE SULFATE ER 30 MG TABLET PO SCH ×4 (00:04→23:57)
[2017-07-19] MEDS: POTASSIUM CHLORIDE ER 20 MEQ TAB.ER PO SCH ×5 (00:06→10:47)
[2017-07-19] MEDS: SODIUM CHLORIDE 0.9% 1,000 ML IV SCH ×3 (00:07→15:39)
[2017-07-19 03:39] LABS: ALT 79 U/L (21-72); AST 103 U/L (17-59); Alkaline Phosphatase 834 U/L (38-126); Anion Gap 12 mmol/L; Blood Urea Nitrogen 14 mg/dL (9-20); Calcium 7.4 mg/dL (8.4-10.2); Carbon Dioxide 25 mmol/L (22-30); Chloride 96 mmol/L (98-107); Glucose 95 mg/dL (74-99); Non-African American GFR(MDRD) >60 (>60 ml/min/1.73 sqM); Sodium 133 mmol/L (137-145); Total Bilirubin 1.3 mg/dL (0.2-1.3); Total Protein 4.5 g/dL (6.3-8.2)
[2017-07-19 03:43] LABS: Potassium 2.9 mmol/L (3.5-5.1)
[2017-07-19] MEDS: CEPHALEXIN 500 MG CAP PO SCH ×2 (07:56→20:24)
[2017-07-19] MEDS: PANTOPRAZOLE 40 MG/10 ML VIAL IV SCH (07:57)
[2017-07-19] MEDS: DOXAZOSIN 1 MG TAB PO SCH (07:57)
[2017-07-19 09:41] LABS: ALT 72 U/L (21-72); AST 91 U/L (17-59); Alkaline Phosphatase 807 U/L (38-126); Anion Gap 8 mmol/L; Blood Urea Nitrogen 11 mg/dL (9-20); Calcium 7.3 mg/dL (8.4-10.2); Carbon Dioxide 26 mmol/L (22-30); Chloride 99 mmol/L (98-107); Glucose 145 mg/dL (74-99); Non-African American GFR(MDRD) >60 (>60 ml/min/1.73 sqM); Potassium 3.3 mmol/L (3.5-5.1); Sodium 133 mmol/L (137-145); Total Bilirubin 1.2 mg/dL (0.2-1.3); Total Protein 4.6 g/dL (6.3-8.2)
[2017-07-19] MEDS ORDERED: Potassium Replacement Protocol 1 EACH MISC MISCELLANE PRN (09:56)
--- NOTE | 2017-07-19 10:25 | PN ---
PROGRESS NOTE The patient is a 46-year-old white male admitted to the hospital with abdominal pain, some nausea, vomiting for the last 2 days duration. The patient says that she has not been eating for the last 2 to 3 days and has been having progressive weight loss associated with generalized weakness. On admission to the hospital was noted to have elevated serum transaminases as well as jaundice. The patient has no history of chronic liver disease. As part of the workup he initially had ultrasound of the abdomen done that was unremarkable except for gallbladder sludge. Subsequently CT of abdomen and pelvis was ordered yesterday, which showed fatty liver; however, there was no evidence of biliary ductal dilation or any pericholecystic fluid noted. This morning he states that he is doing well. His abdominal pain has improved. No further episodes of nausea or vomiting. He is able to eat well, tolerating diet. PHYSICAL EXAMINATION: Appears comfortable, in no apparent distress. Vital signs are stable. Blood pressure is 116/65, pulse is 94, temperature 96.7. HEENT: Examination is unremarkable. Conjunctivae pink. Sclerae anicteric. Oral cavity, no lesions. Neck: No jugular venous distention or lymph node enlargement. Chest was clear to auscultation. Heart: Regular rate and rhythm. Abdomen is soft, nontender, nondistended. Bowel sounds are positive. No organomegaly. Extremities: No pedal edema. Skin: No rashes. Neuro: He is alert and oriented x3. No focal deficits. LABS: From today, AST is down to 103, ALT is down to 79, alkaline phosphatase is 834, and T bilirubin is down to 1.3. Basic metabolic panel is within normal limits and CBC is within normal limits. IMPRESSION: The patient presents to the hospital with fatigue, weakness, and progressive weight loss, not feeling well for the last several days duration associated with decreased oral intake from intentional starvation. Noted to have elevated serum transaminases and had intrahepatic cholestatic picture at the time of admission the hospital. Workup for liver disease is still pending at the time of this dictation. However, given the last 2 days his serum transaminases are improving and so is bilirubin and alkaline phosphatase. Ultrasound of the abdomen as well as CT of the abdomen did not show any evidence of biliary ductal dilation, meaning that we are dealing with intrahepatic cholestasis process at the present time. RECOMMENDATIONS: 1. Await workup for chronic liver disease. 2. Discussed with the patient the CT scan findings. 3. We will follow him closely during his hospital stay. If his liver counts continue to improve, we will just follow his serum transaminases. Will continue to follow his LFTs closely. However, if no obvious etiology may consider liver biopsy at a later date. The plan was discussed with the patient who is agreeable to it. Thank you for this consultation. REBECA / NISHA: [id number] /
[2017-07-19] MEDS: POTASSIUM CHLORIDE 10 MEQ, LIDOCAINE 2% INJ 10 MG in SODIUM CHLORIDE 0.9% 100 ML IV SCH ×2 (10:48→11:55)
--- NOTE | 2017-07-19 11:01 | P.GSCN ---
History of Present Illness Consult date: 07/19/17 Reason for Consult: Cholelithiasis, cholecystitis History of present illness: This a 46-year-old male who was admitted to the hospital. Patient apparently admitted to starving himself. He developed abdominal pain he was worked up found evidence of cholelithiasis and cholecystitis with thickened gallbladder wall. Patient is currently being evaluated by psychiatry. Past Medical History Additional Past Medical History / Comment(s): back pain History of Any Multi-Drug Resistant Organisms: None Reported Past Surgical History: Back Surgery, Tonsillectomy Past Anesthesia/Blood Transfusion Reactions: No Reported Reaction Past Psychological History: Depression, Schizophrenia Smoking Status: Former smoker Past Alcohol Use History: None Reported Past Drug Use History: None Reported - Past Family History Mother Family Medical History: Rheumatoid Arthritis (RA) Father Family Medical History: Hypertension, Skin Disorder Medications and Allergies Home Medications Medication Instructions Recorded Confirmed Type Doxazosin [Cardura] 1 mg PO DAILY 07/17/17 07/17/17 History Morphine Sulfate [Morphine Sulfate 30 mg PO TID 07/17/17 07/17/17 History ER] predniSONE 12.5 mg PO DAILY 07/17/17 07/17/17 History Allergies Allergy/AdvReac Type Severity Reaction Status Date / Time No Known Allergies Allergy Verified 07/17/17 11:39 Surgical - Exam Vital Signs Temp Pulse Resp BP Pulse Ox 97.7 F 154 H 18 114/80 100 07/17/17 11:06 07/17/17 11:06 07/17/17 11:06 07/17/17 11:06 07/17/17 11:06 - General no distress - Eyes PERRL - ENT normal pinna - Neck no masses - Respiratory normal expansion - Cardiovascular Rhythm: regular - Abdomen Abdomen soft. There is some mild right upper quadrant tenderness. There is no rebound or guarding. Results - Labs 07/18/17 08:02 07/19/17 09:11 Abnormal Lab Results - Last 24 Hours (Table) 07/18/17 07/19/17 07/19/17 Range/Units 21:17 03:11 09:11 Sodium 133 L 133 L (137-145) mmol/L Potassium 3.1 L 2.9 L* 3.3 L (3.5-5.1) mmol/L Chloride 96 L (98-107) mmol/L Glucose 145 H (74-99) mg/dL Calcium 7.4 L 7.3 L (8.4-10.2) mg/dL AST 103 H 91 H (17-59) U/L ALT 79 H (21-72) U/L Alkaline Phosphatase 834 H 807 H (38-126) U/L Total Protein 4.5 L 4.6 L (6.3-8.2) g/dL Albumin 2.3 L 2.4 L (3.5-5.0) g/dL Microbiology - Last 24 Hours (Table) 07/17/17 20:00 Urine Culture - Preliminary Urine,Catheterized 07/17/17 14:34 Blood Culture - Preliminary Blood No Growth after 24 hours 07/17/17 14:35 Blood Culture - Preliminary Blood No Growth after 24 hours Diabetes panel 07/18/17 07/19/17 07/19/17 Range/Units 21: 03:11 09:11 Sodium 133 L 133 L (137-145) mmol/L Potassium 3.1 L 2.9 L* 3.3 L (3.5-5.1) mmol/L Chloride 96 L 99 (98-107) mmol/L Carbon Dioxide 25 26 (22-30) mmol/L BUN 14 11 (9-20) mg/dL Creatinine 0.80 0.80 (0.66-1.25) mg/dL Glucose 95 145 H (74-99) mg/dL Calcium 7.4 L 7.3 L (8.4-10.2) mg/dL AST 103 H 91 H (17-59) U/L ALT 79 H 72 (21-72) U/L Alkaline Phosphatase 834 H 807 H (38-126) U/L Total Protein 4.5 L 4.6 L (6.3-8.2) g/dL Albumin 2.3 L 2.4 L (3.5-5.0) g/dL Calcium panel 07/19/17 07/19/17 Range/Units 03:11 09:11 Calcium 7.4 L 7.3 L (8.4-10.2) mg/dL Albumin 2.3 L 2.4 L (3.5-5.0) g/dL Pituitary panel 07/18/17 07/19/17 07/19/17 Range/Units 21:17 03:11 09:11 Sodium 133 L 133 L (137-145) mmol/L Potassium 3.1 L 2.9 L* 3.3 L (3.5-5.1) mmol/L Chloride 96 L 99 (98-107) mmol/L Carbon Dioxide 25 26 (22-30) mmol/L BUN 14 11 (9-20) mg/dL Creatinine 0.80 0.80 (0.66-1.25) mg/dL Glucose 95 145 H (74-99) mg/dL Calcium 7.4 L 7.3 L (8.4-10.2) mg/dL Adrenal panel 07/18/17 07/19/17 07/19/17 Range/Units 21:17 03:11 09:11 Sodium 133 L 133 L (137-145) mmol/L Potassium 3.1 L 2.9 L* 3.3 L (3.5-5.1) mmol/L Chloride 96 L 99 (98-107) mmol/L Carbon Dioxide 25 26 (22-30) mmol/L BUN 14 11 (9-20) mg/dL Creatinine 0.80 0.80 (0.66-1.25) mg/dL Glucose 95 145 H (74-99) mg/dL Calcium 7.4 L 7.3 L (8.4-10.2) mg/dL Total Bilirubin 1.3 1.2 (0.2-1.3) mg/dL AST 103 H 91 H (17-59) U/L ALT 79 H 72 (21-72) U/L Alkaline Phosphatase 834 H 807 H (38-126) U/L Total Protein 4.5 L 4.6 L (6.3-8.2) g/dL Albumin 2.3 L 2.4 L (3.5-5.0) g/dL - Imaging US - abdomen: report reviewed (5 mm thickened gallbladder wall, cholelithiasis) Assessment and Plan Plan: Cholelithiasis. Cholecystitis. Elevated liver function tests which have improved during his admission. Patient should undergo laparoscopic cholecystectomy when he is medically clear, we will plan for laparoscopic cholecystectomy on Thursday..
[2017-07-19 11:57] LABS: Iron Saturation 37.35 (15.00-50.00)
--- NOTE | 2017-07-19 12:06 | P.PN ---
Progress Note - Text Progress Note Date: 07/19/17 Interval history: Patient seen in psychiatric follow-up today. He relates that he won't pay me. He is not agreeable to talk to me today. He does have a male visitor sitting with him. Mental status exam: Patient makes reference to that he won't pay me. He is not agreeable to talk with me today. Plan: Did relay to the patient that it is recommended for psychiatric stabilization. He is not agreeable to talk with me today. Petition is on the chart. Recommend first clinical certain be done by the attending physician and then second clinical certain would be done by psychiatrist for involuntary admission recommended after medical stabilization. Psychiatry will follow up.
--- NOTE | 2017-07-19 14:59 | P.PN ---
Subjective Progress Note Date: 07/19/17 Principal diagnosis: the patient is a 46-year-old male with a history of schizophrenia the presented with acute paranoid delusions with exacerbation of his schizophrenia, with acute transaminitis secondary to likely acute cholecystitis and symptomatic cholelithiasis with ongoing electrolyte abnormalities hypokalemia. GI was consulted for further workup and general surgery was consulted and is planning a laparoscopic O cystectomy on Thursday, patient in good spirits today, has no complaints, denies abdominal pain or nausea. No acute events overnight Objective - Vital Signs Vital signs: Vital Signs Temp 97.3 F L 07/19/17 07:00 Pulse 87 07/19/17 07:00 Resp 16 07/19/17 07:00 BP 111/68 07/19/17 07:00 Pulse Ox 100 07/19/17 07:00 Intake & Output 07/18/17 07/19/17 07/19/17 18:59 06:59 18:59 Intake Total 700 400 Output Total 800 Balance -100 400 Weight 77.428 kg 85.275 kg Intake: Oral 700 400 Output: Emesis 800 Other: Voiding Method Urinal Toilet # Voids 2 1 # Bowel Movements 1 - Exam Constitutional: No acute distress, conversant, pleasant Eyes: Anicteric sclerae, moist conjunctiva, no lid-lag, PERRLA ENMT: NC/AT,Oropharynx clear, no erythema, exudates Neck:Supple, FROM, no masses, or JVD, No carotid bruits; No thyromegaly Lungs: Clear to auscultation, Clear to percussion, Normal respiratory effort, no accessory muscle use Cardiovascular: Heart regular in rate and rhythm, No murmurs, gallops, or rubs no peripheral edema Abdominal: Soft tender to palpation right upper quadrant,positive Mendoza sign nom distended, no guarding, no rebound or rigidity, Normoactive bowel sounds No hepatomegaly, No splenomegaly, No palpable mass No abdominal wall hernia noted Skin: Normal temperature, tone, texture, turgor, No induration No subcutaneous nodules, No rash, lesions, No ulcers Extremities:No digital cyanosis No clubbing, Pedal pulses intact and symmetrical Radial pulses intact and symmetrical Normal gait and station, No calf tenderness Psychiatric: Alert and oriented to person, place and time, Appropriate affect Intact judgement Neuro: Muscles Strength 5/5 in all 4 extremities, Sensation to light touch grossly present throughout, Cranial nerves II-XII grossly intact. No focal sensory deficits - Labs CBC & Chem 7: 07/18/17 08:02 07/19/17 09:11 Labs: Abnormal Lab Results - Last 24 Hours (Table) 07/18/17 07/19/17 07/19/17 Range/Units 21:17 03:11 09:11 Sodium 133 L 133 L (137-145) mmol/L Potassium 3.1 L 2.9 L* 3.3 L (3.5-5.1) mmol/L Chloride 96 L (98-107) mmol/L Glucose 145 H (74-99) mg/dL Calcium 7.4 L 7.3 L (8.4-10.2) mg/dL AST 103 H 91 H (17-59) U/L ALT 79 H (21-72) U/L Alkaline Phosphatase 834 H 807 H (38-126) U/L Total Protein 4.5 L 4.6 L (6.3-8.2) g/dL Albumin 2.3 L 2.4 L (3.5-5.0) g/dL Microbiology - Last 24 Hours (Table) 07/17/17 20:00 Urine Culture - Preliminary Urine,Catheterized 07/17/17 14:34 Blood Culture - Preliminary Blood No Growth after 24 hours 07/17/17 14:35 Blood Culture - Preliminary Blood No Growth after 24 hours Assessment and Plan (1) Sepsis Narrative/Plan: * Secondary to UTI versus acute cholecystitis urine cultures sent, initiated on oral Keflex today, afebrile leukocytosis resolved * General surgery Dr. Montesinos planning lap cholecystectomy on Thursday Status: Acute (2) Dehydration with hyponatremia Narrative/Plan: * Continue with IV fluids increase fluids to 1 50 mL per hour of normal saline Status: Acute (3) Hypokalemia Narrative/Plan: * Potassium still lowat 2.8 this morning we'll activate potassium replacement will call we'll replace and recheck tomorrow Status: Acute (4) Transaminitis Narrative/Plan: * likely secondary to acute cholecystitis * GI Dr. Barnes Following, hep panel HIV ordered, right upper quadrant ultrasound suggestive of possible acute cholecystitis Status: Acute (5) Schizophrenia, chronic with acute exacerbation Narrative/Plan: * Awaiting psychiatry recommendations Status: Acute
[2017-07-20] MEDS: SODIUM CHLORIDE 0.9% 1,000 ML IV SCH ×5 (00:30→21:03)
[2017-07-20] MEDS: PANTOPRAZOLE 40 MG/10 ML VIAL IV SCH (08:21)
[2017-07-20] MEDS: DOXAZOSIN 1 MG TAB PO SCH (08:22)
[2017-07-20] MEDS: CEPHALEXIN 500 MG CAP PO SCH ×2 (08:22→20:59)
[2017-07-20] MEDS: MORPHINE SULFATE ER 30 MG TABLET PO SCH ×4 (08:25→23:29)
[2017-07-20] MEDS: POTASSIUM CHLORIDE ER 20 MEQ TAB.ER PO SCH (09:29)
[2017-07-20 10:45] LABS: ALT 62 U/L (21-72); AST 46 U/L (17-59); Alkaline Phosphatase 631 U/L (38-126); Anion Gap 6 mmol/L; Blood Urea Nitrogen 9 mg/dL (9-20); Calcium 7.3 mg/dL (8.4-10.2); Carbon Dioxide 27 mmol/L (22-30); Chloride 104 mmol/L (98-107); Glucose 109 mg/dL (74-99); Non-African American GFR(MDRD) >60 (>60 ml/min/1.73 sqM); Potassium 3.5 mmol/L (3.5-5.1); Sodium 137 mmol/L (137-145); Total Bilirubin 0.8 mg/dL (0.2-1.3); Total Protein 4.4 g/dL (6.3-8.2)
--- NOTE | 2017-07-20 12:25 | P.PN ---
Subjective Progress Note Date: 07/20/17 46-year-old male seen and examined at bedside patient reports he has intermittent episodes of denies any nausea vomiting. Patient does give a history of having "tried to start myself with without food for 52 days drink a lot of water" patient states he has never tried that before but he was going through "some stuff" patient stated that he has lost about 75 pounds patient is aware of the plan of care scheduled tomorrow for a lap cholecystectomy. AST 46, ALT 62, alkaline phosphatase 631 alpha-1 antitrypsin 149 Objective - Vital Signs Vital signs: Vital Signs Temp 97.2 F L 07/20/17 07:00 Pulse 79 07/20/17 07:00 Resp 20 07/20/17 07:00 BP 108/69 07/20/17 07:00 Pulse Ox 98 07/20/17 07:00 Intake & Output 07/19/17 07/20/17 07/20/17 18:59 06:59 18:59 Intake Total 520 600 240 Balance 520 600 240 Weight 87.5 kg Intake: Oral 520 600 240 Other: # Voids 2 - Exam Physical exam 46-year-old male resting in bed talkative patient is stating that he cannot go to the mental health unit can afford the bill and he knows how to take care of things himself Lungs essentially clear adequate air movement on room air Heart S1-S2 audible regular Abdomen soft not distended bowel tones present slight tenderness to the right lower quadrant no rebound no facial grimacing states urinating no difficulty no frequent stooling states no nausea vomiting and tolerating a diet Extremities no edema - Labs CBC & Chem 7: 07/18/17 08:02 07/20/17 08:49 Labs: Abnormal Lab Results - Last 24 Hours (Table) 07/18/17 07/18/17 07/20/17 Range/Units 21:17 21:17 08:49 Glucose 109 H (74-99) mg/dL Calcium 7.3 L (8.4-10.2) mg/dL Iron 62 L (65-175) ug/dL TIBC 166 L (228-460) ug/dL Ferritin 1652.3 H (22.0-322.0) ng/mL Alkaline Phosphatase 631 H (38-126) U/L Total Protein 4.4 L (6.3-8.2) g/dL Total Protein (PEP) 4.9 L (6.2-8.2) g/dL Albumin 2.2 L (3.5-5.0) g/dL Microbiology - Last 24 Hours (Table) 07/17/17 20:00 Urine Culture - Final Urine,Catheterized 07/17/17 14:34 Blood Culture - Preliminary Blood No Growth after 48 hours 07/17/17 14:35 Blood Culture - Preliminary Blood No Growth after 48 hours Assessment and Plan Plan: Impression History of schizophrenia Sepsis likely due to UTI Abdominal pain present on admission suspect due to cholelithiasis and Acute cholecystitis Present on admission dehydration resolved Present on admission hyponatremia Elevated liver enzymes trending down improving Plan Patient is scheduled tomorrow for a lap cholecystectomy Pain control Defer to admitting service and other consultants for medical issues Repeat labs in am DVT and GI prophylaxis The above impression and plan of care have been discussed and directed by signing physician. Noemi Garber nurse practitioner acting as scribe for signing physician.
[2017-07-20 13:38] LABS: Basophils % (A) 1 %; CH 28.1; CHCM 31.2; Eosinophils # (A) 0.1 k/uL (0-0.7); Eosinophils % (A) 2 %; HDW 2.83; Hypochromasia Slight; Luc # (Auto) 0.09; Luc % (Auto) 2; Lymphocytes # (A) 1.2 k/uL (1.0-4.8); Lymphocytes % (A) 25 %; MCH 28.7 pg (25.0-35.0); MCHC 31.6 g/dL (31.0-37.0); MCV 90.6 fL (80.0-100.0); Mean Platelet Volume 7.1; Monocytes # (A) 0.4 k/uL (0-1.0); Monocytes % (A) 7 %; Neutrophils # (A) 3.1 k/uL (1.3-7.7); Neutrophils % (A) 63 %; RBC 3.42 m/uL (4.30-5.90); RDW 12.9 % (11.5-15.5); WBC 4.9 k/uL (3.8-10.6); WBC (Perox) 5.15
[2017-07-20 13:42] LABS: HGB 9.8 gm/dL (13.0-17.5)
--- NOTE | 2017-07-20 15:33 | P.PN ---
Subjective Progress Note Date: 07/20/17 Principal diagnosis: This 46-year-old male that was admitted secondary to delusions. Initial workup showed elevation elevation of the liver enzymes and leukocytosis. Patient found to have leukocytosis and urinary tract infection cultures have been negative and urine cultures positive for sindi. No patient denies any fever or chills at this time denies any dysuria hematuria. Now complaining what seems like an exacerbation of his back pain. Objective - Vital Signs Vital signs: Vital Signs Temp 97.2 F L 07/20/17 07:00 Pulse 79 07/20/17 07:00 Resp 20 07/20/17 07:00 BP 108/69 07/20/17 07:00 Pulse Ox 98 07/20/17 07:00 Intake & Output 07/19/17 07/20/17 07/20/17 18:59 06:59 18:59 Intake Total 520 600 480 Balance 520 600 480 Weight 87.5 kg Intake: Oral 520 600 480 Other: # Voids 2 2 - Exam gen:alert and oriented lungs:clear to auscultation heart:s1s2 abdomen:soft and depressible,non tender ext:no edema - Labs CBC & Chem 7: 07/20/17 08:51 07/20/17 08:49 Labs: Abnormal Lab Results - Last 24 Hours (Table) 07/18/17 07/18/17 07/20/17 Range/Units 21:17 21:17 08:49 RBC (4.30-5.90) m/uL Hgb (13.0-17.5) gm/dL Hct (39.0-53.0) % Glucose 109 H (74-99) mg/dL Calcium 7.3 L (8.4-10.2) mg/dL Iron 62 L (65-175) ug/dL TIBC 166 L (228-460) ug/dL Ferritin 1652.3 H (22.0-322.0) ng/mL Alkaline Phosphatase 631 H (38-126) U/L Total Protein 4.4 L (6.3-8.2) g/dL Total Protein (PEP) 4.9 L (6.2-8.2) g/dL Albumin 2.2 L (3.5-5.0) g/dL 07/20/17 Range/Units 08:51 RBC 3.42 L (4.30-5.90) m/uL Hgb 9.8 L D (13.0-17.5) gm/dL Hct 31.0 L (39.0-53.0) % Glucose (74-99) mg/dL Calcium (8.4-10.2) mg/dL Iron (65-175) ug/dL TIBC (228-460) ug/dL Ferritin (22.0-322.0) ng/mL Alkaline Phosphatase (38-126) U/L Total Protein (6.3-8.2) g/dL Total Protein (PEP) (6.2-8.2) g/dL Albumin (3.5-5.0) g/dL Microbiology - Last 24 Hours (Table) 07/17/17 20:00 Urine Culture - Final Urine,Catheterized 07/17/17 14:34 Blood Culture - Preliminary Blood No Growth after 48 hours 07/17/17 14:35 Blood Culture - Preliminary Blood No Growth after 48 hours Assessment and Plan (1) Cholecystitis Narrative/Plan: plan for Cholecystectomy tomorrow Status: Acute (2) Urinary tract infection Narrative/Plan: Urine cultures negative continue Keflex Status: Acute (3) Back pain Narrative/Plan: Patient on morphine sulfate 30 mg 3 times a day as an outpatient. Status: Acute (4) Acute psychosis Narrative/Plan: Will need inpatient psychiatric evaluation and treatment. Petition in the chart Status: Acute
[2017-07-20] MEDS: HEPARIN SODIUM,PORCINE 5,000 UNIT/ML 1 ML VIAL SQ SCH ×2 (16:26→23:31)
--- NOTE | 2017-07-20 17:11 | P.PN ---
Progress Note - Text Progress Note Date: 07/20/17 Interval history: Patient seen in psychiatric follow-up today. He refuses to speak to this provider, stating that he does not want to pay psychiatry. Does have a meal tray in front of him and appears to be eating. Spoke to patient's unit nurse who stated that patient has been eating all meals well. Also, no reported hallucinations or delusions while on the medical floor. Mental status exam: Refusing to speak to this provider today. Plan: Petition is on the chart. However, there has not been a certification done as of yet. At this time, patient is no longer starving himself and not displaying any acutely psychotic symptoms warranting an involuntary admission in my opinion. Patient is not willing to have psychiatric services voluntarily. If he does display psychotic symptoms warranting further psychiatric intervention, please notify us and we will be glad to see patient again. We will sign off for now.
[2017-07-20] MEDS ORDERED: LACTATED RINGERS 1,000 ML IV SCH (17:59)
[2017-07-20] MEDS ORDERED: ONDANSETRON 4 MG/2 ML VIAL IVP ONE (17:59)
[2017-07-20] MEDS ORDERED: DEXAMETHASONE SOD PHOSPHATE 10 MG/ML 1 ML VIAL IV ONE (17:59)
[2017-07-20] MEDS ORDERED: MIDAZOLAM 2 MG/2 ML VIAL IV PRN (17:59)
[2017-07-21] MEDS: SODIUM CHLORIDE 0.9% 1,000 ML IV SCH ×3 (05:35→20:42)
[2017-07-21] MEDS: PANTOPRAZOLE 40 MG TABLET PO SCH (07:30)
[2017-07-21] MEDS: POTASSIUM CHLORIDE ER 20 MEQ TAB.ER PO SCH (09:00)
[2017-07-21] MEDS: DOXAZOSIN 1 MG TAB PO SCH (09:00)
[2017-07-21] MEDS: CEPHALEXIN 500 MG CAP PO SCH ×2 (09:00→20:43)
[2017-07-21] MEDS: MORPHINE SULFATE ER 30 MG TABLET PO SCH ×2 (09:00→16:42)
[2017-07-21] MEDS ORDERED: IV FLUID CONTINUATION 1,000 ML IV ONE (09:05)
[2017-07-21 09:22] LABS: Basophils # (A) 0.1 k/uL (0-0.2); Basophils % (A) 1 %; CH 29.8; CHCM 32.6; Eosinophils # (A) 0.1 k/uL (0-0.7); Eosinophils % (A) 1 %; HCT 30.3 % (39.0-53.0); HDW 2.79; HGB 9.6 gm/dL (13.0-17.5); Luc # (Auto) 0.08; Luc % (Auto) 1; Lymphocytes # (A) 1.2 k/uL (1.0-4.8); Lymphocytes % (A) 21 %; MCHC 31.6 g/dL (31.0-37.0); MCV 91.9 fL (80.0-100.0); Mean Platelet Volume 7.2; Monocytes # (A) 0.5 k/uL (0-1.0); Monocytes % (A) 9 %; Neutrophils # (A) 3.9 k/uL (1.3-7.7); Neutrophils % (A) 67 %; RDW 14.6 % (11.5-15.5); WBC 5.8 k/uL (3.8-10.6); WBC (Perox) 5.83
[2017-07-21 09:27] LABS: ALT 50 U/L (21-72); AST 29 U/L (17-59); Alkaline Phosphatase 522 U/L (38-126); Anion Gap 10 mmol/L; Blood Urea Nitrogen 9 mg/dL (9-20); Calcium 7.3 mg/dL (8.4-10.2); Carbon Dioxide 24 mmol/L (22-30); Chloride 104 mmol/L (98-107); Glucose 96 mg/dL (74-99); Non-African American GFR(MDRD) >60 (>60 ml/min/1.73 sqM); Potassium 3.8 mmol/L (3.5-5.1); Sodium 138 mmol/L (137-145); Total Bilirubin 0.7 mg/dL (0.2-1.3); Total Protein 4.6 g/dL (6.3-8.2)
[2017-07-21] MEDS: HEPARIN SODIUM,PORCINE 5,000 UNIT/ML 1 ML VIAL SQ SCH (10:00)
[2017-07-21] MEDS: ONDANSETRON 4 MG/2 ML VIAL IVP PRN (10:01)
[2017-07-21] MEDS ORDERED: HYDROCORTISONE SUCCINATE 100 MG/2 ML VIAL IV ONE (10:02)
[2017-07-21] MEDS ORDERED: GLYCOPYRROLATE 0.2 MG/ML 2 ML VIAL ONE (11:13)
[2017-07-21] MEDS ORDERED: LIDOCAINE 1% INJ 10MG/ML (20 ML MDV) ONE (11:13)
[2017-07-21] MEDS ORDERED: ePHEDrine SULFATE/0.9% NACL/PF 50 MG/5 ML SYRINGE IV ONE (11:13)
[2017-07-21] MEDS ORDERED: fentaNYL (PF) 50 MCG/ML 2 ML AMP ONE (11:13)
[2017-07-21] MEDS ORDERED: ROCURONIUM BROMIDE 10 MG/ML 10 ML VIAL IV ONE (11:13)
[2017-07-21] MEDS ORDERED: HYDROmorphone (PF) 1 MG/ML ONE (11:13)
[2017-07-21] MEDS ORDERED: MIDAZOLAM 2 MG/2 ML VIAL ONE (11:13)
[2017-07-21] MEDS ORDERED: NEOSTIGMINE 1 MG/ML 10 ML VIAL ONE (11:13)
[2017-07-21] MEDS ORDERED: PROPOFOL 10 MG/ML 20 ML VIAL IV ONE (11:13)
[2017-07-21] MEDS ORDERED: SODIUM CHLORIDE 0.9% 50 ML with ceFAZolin 2,000 MG IV ONE ×2 (11:30)
[2017-07-21] MEDS ORDERED: BUPIVACAINE-EPI 0.5%-1:200,000 10 ML VIAL SQ ONE (11:32)
[2017-07-21] MEDS ORDERED: LACTATED RINGERS 1,000 ML IV ONE ×2 (11:55→11:57)
[2017-07-21] MEDS ORDERED: NALOXONE 0.4 MG/ML 1 ML VIAL IV PRN (11:57)
[2017-07-21] MEDS ORDERED: HYDROmorphone 0.5 MG/0.5 ML SYRINGE IVP PRN (11:57)
--- NOTE | 2017-07-21 11:57 | P.OP ---
Date of Procedure: 07/21/17 Preoperative Diagnosis: Cholecystitis Postoperative Diagnosis: Cholecystitis Procedure(s) Performed: Laparoscopic cholecystectomy Anesthesia: CLIFTON Surgeon: John Montesinos Estimated Blood Loss (ml): 5 Pathology: other (Gallbladder, cholelithiasis) Condition: stable Disposition: PACU Description of Procedure: The patient was placed on the operating table. The patient received a general endotracheal tube anesthesia. The patients abdomen was prepped and draped in the usual sterile fashion. Through an infraumbilical stab incision, the fascia of the anterior abdominal wall was grasped with a pair of Kochers and then the Veress needle was placed in the peritoneal cavity. Position of the Veress needle was confirmed with positive drop test. The abdomen was then insufflated. After adequate insufflation, the 10 mm trocar was placed in the peritoneal cavity. Following this the laparoscope was placed in the peritoneal cavity. The patient was placed in the head-up, right side up position and then a 5 mm trocar was placed in the right lateral and right subcostal position under direct visualization. A 8 mm trocar was placed in the epigastric position. The gallbladder was grasped in the fundus and infundibulum. Traction on the gallbladder was placed in the lateral and the cephalad positions. The triangle of Calot was visualized.. The cystic duct was bluntly dissected until the union of the cystic duct and common bile duct was seen. The cystic duct was then divided and sealed with the Harmonic scissors. A PDS Endoloop was then placed throughout the cystic duct stump. The cystic artery divided and sealed with the Harmonic scissors. The gallbladder was then removed from the liver bed using Harmonic scissors. The gallbladder was then extracted through the epigastric port site. Operative field was checked for any bleeding spots and Harmonic scissors was used to coagulate the liver bed. The abdomen was irrigated. The trocars were removed. The skin was closed using interrupted 3-0 Vicryl suture. Dermabond dressing were applied. The patient tolerated the procedure well.
[2017-07-21] MEDS: HYDROmorphone 0.5 MG/0.5 ML SYRINGE IVP PRN ×2 (12:14→12:25)
[2017-07-21] MEDS: KETOROLAC 30 MG/ML 1 ML VIAL IVP SCH ×2 (13:41→18:04)
--- NOTE | 2017-07-21 14:04 | P.PN ---
Subjective Progress Note Date: 07/21/17 Principal diagnosis: This 46-year-old male that was admitted secondary to delusions. Initial workup showed elevation elevation of the liver enzymes and leukocytosis. Patient found to have leukocytosis and urinary tract infection cultures have been negative and urine cultures positive for sindi. No patient denies any fever or chills at this time denies any dysuria hematuria. Complaining of some shortness in his abdominal site. No nausea no vomiting Objective - Vital Signs Vital signs: Vital Signs Temp 97.0 F L 07/21/17 13:22 Pulse 114 H 07/21/17 13:22 Resp 20 07/21/17 13:22 BP 134/81 07/21/17 13:22 Pulse Ox 95 07/21/17 13:22 Intake & Output 07/20/17 07/21/17 07/21/17 18:59 06:59 18:59 Intake Total 720 1750 Output Total 10 Balance 720 1740 Intake: IV 1750 Oral 720 Output: Estimated Blood Loss 10 Other: # Voids 2 1 - Exam gen:alert and oriented lungs:clear to auscultation heart:s1s2 abdomen:soft and depressible,non tender, evidence of site where cholecystectomy was done,no bleeding ext:no edema - Labs CBC & Chem 7: 07/21/17 08:13 07/21/17 08:13 Labs: Abnormal Lab Results - Last 24 Hours (Table) 07/21/17 07/21/17 Range/Units 08:13 08:13 RBC 3.30 L (4.30-5.90) m/uL Hgb 9.6 L (13.0-17.5) gm/dL Hct 30.3 L (39.0-53.0) % Calcium 7.3 L (8.4-10.2) mg/dL Alkaline Phosphatase 522 H (38-126) U/L Total Protein 4.6 L (6.3-8.2) g/dL Albumin 2.3 L (3.5-5.0) g/dL Microbiology - Last 24 Hours (Table) 07/17/17 14:34 Blood Culture - Preliminary Blood No Growth after 72 hours 07/17/17 14:35 Blood Culture - Preliminary Blood No Growth after 72 hours Assessment and Plan (1) Cholecystitis Narrative/Plan: Status post cholecystectomy today Now patient eating a liquid diet Current Visit: Yes Status: Acute Code(s): K81.9 - CHOLECYSTITIS, UNSPECIFIED SNOMED Code(s): 48016537 (2) Urinary tract infection Narrative/Plan: Urine cultures negative continue Keflex Current Visit: Yes Status: Acute Code(s): N39.0 - URINARY TRACT INFECTION, SITE NOT SPECIFIED SNOMED Code(s): 09665962 (3) Back pain Narrative/Plan: Patient on morphine sulfate 30 mg 3 times a day which is his outpatient treatment. Current Visit: Yes Status: Acute Code(s): M54.9 - DORSALGIA, UNSPECIFIED SNOMED Code(s): 690012237 (4) Acute psychosis Narrative/Plan: Will need inpatient psychiatric evaluation and treatment. Petition in the chart Current Visit: Yes Status: Acute Code(s): F23 - BRIEF PSYCHOTIC DISORDER SNOMED Code(s): 47294819 Plan: We'll monitor overnight dietary changes per surgery. Patient encouraged to ambulate. We will decrease IV fluids. patient will be going to inpatient psychiatric admission once stable from medical site
[2017-07-21] MEDS: HYDROcodone/APAP 5-325MG 1 EACH TAB PO PRN (14:29)
[2017-07-21] MEDS: DOCUSATE 100 MG CAP PO SCH (20:43)
[2017-07-22] MEDS: MORPHINE SULFATE ER 30 MG TABLET PO SCH ×3 (00:08→16:18)
[2017-07-22] MEDS: KETOROLAC 30 MG/ML 1 ML VIAL IVP SCH ×4 (00:08→18:14)
[2017-07-22] MEDS: SODIUM CHLORIDE 0.9% 1,000 ML IV SCH ×2 (01:43→11:37)
[2017-07-22] MEDS: DOCUSATE 100 MG CAP PO SCH ×2 (08:04→20:45)
[2017-07-22] MEDS: CEPHALEXIN 500 MG CAP PO SCH ×2 (08:04→20:45)
[2017-07-22] MEDS: POTASSIUM CHLORIDE ER 20 MEQ TAB.ER PO SCH (08:05)
[2017-07-22] MEDS: PANTOPRAZOLE 40 MG TABLET PO SCH (08:05)
[2017-07-22] MEDS: DOXAZOSIN 1 MG TAB PO SCH (08:05)
[2017-07-22] MEDS ORDERED: ENOXAPARIN 40 MG/0.4 ML SYRINGE SQ SCH (09:00)
[2017-07-22] MEDS: HYDROcodone/APAP 5-325MG 1 EACH TAB PO PRN (09:50)
--- NOTE | 2017-07-22 11:20 | P.PN ---
Subjective Progress Note Date: 07/22/17 Principal diagnosis: This 46-year-old male that was admitted secondary to delusions. Initial workup showed elevation elevation of the liver enzymes and leukocytosis. Patient found to have leukocytosis and urinary tract infection cultures have been negative and urine cultures positive for sindi. patient today complaining of pain in his abdomen. Denies any flatus or bowel movement.No patient denies any fever or chills at this time denies any dysuria hematuria. No nausea no vomiting Objective - Vital Signs Vital signs: Vital Signs Temp 96.9 F L 07/22/17 07:00 Pulse 97 07/22/17 07:00 Resp 16 07/22/17 07:00 BP 119/67 07/22/17 07:00 Pulse Ox 96 07/22/17 07:00 Intake & Output 07/21/17 07/22/17 07/22/17 18:59 06:59 18:59 Intake Total 2750 240 Output Total 10 Balance 2740 240 Intake: IV 1750 Intake, IV Titration 1000 Amount Sodium Chloride 0.9% 1, 1000 000 ml @ 150 mls/hr IV . Q6H40M [facility] Rx#:[id number] Oral 240 Output: Estimated Blood Loss 10 Other: Voiding Method Toilet # Voids 2 1 - Exam gen:alert and oriented lungs:clear to auscultation heart:s1s2 abdomen:soft and depressible,non tender, evidence of site where cholecystectomy was done,no bleeding, bowel sounds present ext:no edema - Labs CBC & Chem 7: 07/21/17 08:13 07/21/17 08:13 Labs: Abnormal Lab Results - Last 24 Hours (Table) 07/18/17 Range/Units 21:17 Total Protein (PEP) 4.9 L (6.2-8.2) g/dL Albumin (PEP) 2.90 L (3.80-4.90) g/dL Gamma Globulins 0.42 L (0.70-1.50) g/dL Microbiology - Last 24 Hours (Table) 07/17/17 14:34 Blood Culture - Preliminary Blood No Growth after 96 hours 07/17/17 14:35 Blood Culture - Preliminary Blood No Growth after 96 hours Assessment and Plan (1) Cholecystitis Narrative/Plan: Status post cholecystectomy today patient tolerating diet, okay to discharge per surgery. Current Visit: Yes Status: Acute Code(s): K81.9 - CHOLECYSTITIS, UNSPECIFIED SNOMED Code(s): 40898299 (2) Urinary tract infection Narrative/Plan: Urine cultures negative continue Keflex no need for further antibiotic treatment upon discharge Current Visit: Yes Status: Acute Code(s): N39.0 - URINARY TRACT INFECTION, SITE NOT SPECIFIED SNOMED Code(s): 57854595 (3) Back pain Narrative/Plan: Patient on morphine sulfate 30 mg 3 times a day which is his outpatient treatment. Current Visit: Yes Status: Acute Code(s): M54.9 - DORSALGIA, UNSPECIFIED SNOMED Code(s): 407035589 (4) Acute psychosis Narrative/Plan: upon review of psychiatry's notes. There is no indication for inpatient admission. I did discuss with her brother he is concerned about patient going back to his environment because he feels that he is going to go back to the same condition. I will communicate this with the psychiatrist inform her of family's concerns of taking him home today. Current Visit: Yes Status: Acute Code(s): F23 - BRIEF PSYCHOTIC DISORDER SNOMED Code(s): 25881152 Plan: discussed case with general surgery from their standpoint patient is okay to be discharged at this point. We'll await discussion with psychiatry regarding further plans
[2017-07-22] MEDS ORDERED: BISACODYL 10 MG SUPP RECTAL STA (11:23)
--- NOTE | 2017-07-22 11:43 | P.PN ---
Subjective Progress Note Date: 07/22/17 46 year male seen examined at bedside complains of surgical pain complain of no bowel movement post op day 1 laparoscopic cholecystectomy for cholecystits Objective - Vital Signs Vital signs: Vital Signs Temp 96.9 F L 07/22/17 07:00 Pulse 97 07/22/17 07:00 Resp 16 07/22/17 07:00 BP 119/67 07/22/17 07:00 Pulse Ox 96 07/22/17 07:00 Intake & Output 07/21/17 07/22/17 07/22/17 18:59 06:59 18:59 Intake Total 2750 240 Output Total 10 Balance 2740 240 Intake: IV 1750 Intake, IV Titration 1000 Amount Sodium Chloride 0.9% 1, 1000 000 ml @ 150 mls/hr IV . Q6H40M [facility] Rx#:[id number] Oral 240 Output: Estimated Blood Loss 10 Other: Voiding Method Toilet # Voids 2 1 - Exam physical exam 46-year-old woman being seen on exam resting in bed family at bedside denies dizziness lightheadedness chest pain or shortness of breath Lungs essentially clear with adequate air movement no shortness of breath on room air Heart S1-S2 audible regular Abdomen surgical laparoscopic sites no redness nondistended bowel tones present no nausea no vomiting urinating no difficulty states no bowel movement Extremities no edema noted - Labs CBC & Chem 7: 07/21/17 08:13 07/21/17 08:13 Labs: Abnormal Lab Results - Last 24 Hours (Table) 07/18/17 Range/Units 21:17 Total Protein (PEP) 4.9 L (6.2-8.2) g/dL Albumin (PEP) 2.90 L (3.80-4.90) g/dL Gamma Globulins 0.42 L (0.70-1.50) g/dL Microbiology - Last 24 Hours (Table) 07/17/17 14:34 Blood Culture - Preliminary Blood No Growth after 96 hours 07/17/17 14:35 Blood Culture - Preliminary Blood No Growth after 96 hours Assessment and Plan Plan: Impression History of schizophrenia Sepsis likely due to UTI Abdominal pain present on admission suspect due to cholelithiasis and Acute cholecystitis Present on admission dehydration resolved Present on admission hyponatremia Elevated liver enzymes trending down improving Postop laparoscopic cholecystectomy for acute cholecystitis Plan Dulcolax suppository 1 now From a surgical perspective patient to be discharged defer to the timing of the discharge to medicine service Continue postop surgical care Pain control Defer to admitting service and other consultants for medical issues DVT and GI prophylaxis The above impression and plan of care have been discussed and directed by signing physician. Noemi Garber nurse practitioner acting as scribe for signing physician.
[2017-07-22 13:51] VITALS: BMI 26.9
--- NOTE | 2017-07-22 15:54 | P.PN ---
Progress Note - Text Progress Note Date: 07/22/[address] Robins regarding Mr. Kaur. He informed me that patient does report persecutory delusions about being watched and arrows being implanted in his head. According to documentation, patient stated that he was not starving himself in a suicide attempt, but instead to see if the people watching him would go away. He has not reported any thoughts of self-harm at this time. Also, no reported threats of harming others. Per discussion with staff, patient has been eating well on the unit and communicating effectively. He has refused to see psychiatry and continues to refuse to talk with me today. I did speak with patient's brother, informing him that I could not give him any information regarding patient's treatment as I do not have consent from the patient. However, I did listen to any information that the brother could provide. He stated that his concern is if patient's mental state will decline when he returns to his home. He reported that patient's home was not in sanitary condition and according to Dr. Robins, the family had to clean patient' s home during his hospital stay. Unfortunately, pt is not willing to undergo psychiatric treatment on a voluntary basis. I do not believe he meets criteria at this time for admission on an involuntary basis as he is not an immediate danger to himself or others. Also, it is my understanding that patient has been eating regularly during hospitalization and should be able to take care of himself. I would recommend that patient's family explore alternative housing options, such as an adult foster care facility so that patient can be monitored more closely and soothe their concerns about him living alone. They can find more information regarding placement at [email or web address]. It would be beneficial for patient to follow-up with outpatient psychiatric services, as well. Also, the medical SW may be able to assist in that matter. It is also my understanding that a second opinion was requested and another provider from psychiatry will evaluate patient and provide further recommendations.
[2017-07-22] MEDS ORDERED: INFLUENZA VACCINE (6 MOS+) 60 MCG/0.5 ML SYRINGE IM ONE (16:43)
--- NOTE | 2017-07-23 00:17 | P.CN ---
Psychiatric Consult - . Consult date: 07/22/17 (Second Opinion) Consult:: Vital Signs: Temp 97.0 F L 07/22/17 15:00 Pulse 96 07/22/17 15:00 Resp 18 07/22/17 15:00 BP 118/55 07/22/17 15:00 Pulse Ox 97 07/22/17 15:00 Psychiatry Consult (second opinion): Xiang Kaur is 46 year old male with past psychiatric history of a psychotic disorder most likely schizophrenia. Prior to interview, his medical record was reviewed including past admission in 2013, Dr. Mejia's evaluation and Dr. Szymanski's noted below. Patient consented for a brief evaluation. Patient is floridly delusional although he able to express now that while he still believes he is being monitored, and has been injected with probes and such he no longer has a desire to starve himself. He says because he no longer feels such is necessary he has been eating in the hospital. He knows his beliefs are not understood by others, but he is able to verbalize that starving himself was harmful to his physical and mental health. Patient has been attending to ADL's in hospital setting. For the patient to meet criteria for involuntary hospitalization there would have to be evidence at present that patient is an eminent risk to himself if he leaves the hospital. Given the patient has been eating and drinking well without prompt for several days this is not the case. Furthermore, while the patient's starvation was an action taken due to his psychosis, medical illness must be taken into context as well. When asked what happened when he tried to eat during said period of starvation, patient states he would vomit which he interpreted as reinforcement to his delusion. During this hospitalization, patient was diagnosed with chronic cholecystitis with cholelithiasis and after cholecystectomy patient has not refused any meals. It possible that this played a major contributing role in patient's previous starvation and now that patient doesn't get ill eating, he is more likely to do so. Of note: 52 days is ~7.5 weeks. There have been unsubstantiated reports of people living for up to 8-weeks without food, but for the overwhelming majority of the population, total starvation will be achieved in 3-4 weeks. Psychiatry Consult: (Dr. Szymanski, 07/22/2017): Spoke with Dr. Robins regarding Mr. Kaur. He informed me that patient does report persecutory delusions about being watched and arrows being implanted in his head. According to documentation, patient stated that he was not starving himself in a suicide attempt, but instead to see if the people watching him would go away. He has not reported any thoughts of self-harm at this time. Also, no reported threats of harming others. Per discussion with staff, patient has been eating well on the unit and communicating effectively. He has refused to see psychiatry and continues to refuse to talk with me today. I did speak with patient's brother, informing him that I could not give him any information regarding patient's treatment as I do not have consent from the patient. However, I did listen to any information that the brother could provide. He stated that his concern is if patient's mental state will decline when he returns to his home. He reported that patient's home was not in sanitary condition and according to Dr. Robins, the family had to clean patient' s home during his hospital stay. Unfortunately, pt is not willing to undergo psychiatric treatment on a voluntary basis. I do not believe he meets criteria at this time for admission on an involuntary basis as he is not an immediate danger to himself or others. Also, it is my understanding that patient has been eating regularly during hospitalization and should be able to take care of himself. I would recommend that patient's family explore alternative housing options, such as an adult foster care facility so that patient can be monitored more closely and soothe their concerns about him living alone. They can find more information regarding placement at [email or web address]. It would be beneficial for patient to follow-up with outpatient psychiatric services, as well. Also, the medical SW may be able to assist in that matter. It is also my understanding that a second opinion was requested and another provider from psychiatry will evaluate patient and provide further recommendations. Mental Status Exam: Appearance: alert laying in bed, well groomed, appears stated age Behavior: psychomotor agitation+++, no abnormal movements, fair eye contact Attitude: cooperative Speech: normal rate, rhythm, fluency, articulation, volume, and prosody; primary language: Chinese Mood: euthymic Affect: congruent, reactive Thought processes: linear Thought content: patient does not appear to be responding to internal stimuli; patient denies auditory and visual hallucinations, no delusional behavior appreciate at current time Insight: fair Judgment: fair Cognitive: oriented to all 3 spheres, average intelligence Recommendations: Agree with Dr. Szymanski's assessment and recommendations: Patient has medical decision making capacity and may consent or decline medical or mental health treatment despite still endorsing some delusions Patient does not meet criteria for involuntary admission to mental health Patient was offered and declined voluntary admission to mental health Patient was offered trial of antipsychotic agent and declined Patient encouraged to establish with outpatient mental health Psychiatry will sign off, if you have questions or concerns please feel free to contact: ~ Dante Hale DO [phone] (pager) Assessment and Plan (1) Schizophrenia Current Visit: Yes Status: Acute Code(s): F20.9 - SCHIZOPHRENIA, UNSPECIFIED SNOMED Code(s): 31672012 Time with Patient: Greater than 30
[2017-07-23] MEDS: MORPHINE SULFATE ER 30 MG TABLET PO SCH ×3 (00:20→16:15)
[2017-07-23] MEDS: KETOROLAC 30 MG/ML 1 ML VIAL IVP SCH ×2 (00:20→06:08)
[2017-07-23] MEDS ORDERED: BISACODYL 10 MG SUPP RECTAL PRN (08:07)
[2017-07-23] MEDS: DOXAZOSIN 1 MG TAB PO SCH (08:31)
[2017-07-23] MEDS: DOCUSATE 100 MG CAP PO SCH ×2 (08:31→20:43)
[2017-07-23] MEDS: POTASSIUM CHLORIDE ER 20 MEQ TAB.ER PO SCH (08:31)
[2017-07-23] MEDS: PANTOPRAZOLE 40 MG TABLET PO SCH (08:32)
[2017-07-23] MEDS: CEPHALEXIN 500 MG CAP PO SCH ×2 (08:32→20:43)
--- NOTE | 2017-07-23 12:24 | CT ---
EXAMINATION TYPE: CT brain wo con DATE OF EXAM: 07/23/2017 COMPARISON: NONE HISTORY: 46-year-old male psychosis workup, confusion, status TECHNIQUE: Examination was done in axial plane without intravenous contrast. Coronal and sagittal r econstructions performed. CT DLP: 1174 mGycm Automated exposure control for dose reduction was used. FINDINGS: There is no evidence of acute intracranial hemorrhage, acute ischemic changes, mass, mass-effect, or extra-axial fluid collection. There is no effacement of cerebral sulci or basal subarachnoid cister ns. There is no hydrocephalus. There is no midline shift. Lara-white matter distinction is preserv ed. There is mild generalized supratentorial volume loss. Paranasal sinuses and mastoid air cells well pneumatized. Leftward nasal septal deviation. Orbits and globes are intact. IMPRESSION: Mild generalized cerebral atrophy. No acute intracranial abnormality seen.
--- NOTE | 2017-07-23 14:52 | P.DS ---
Providers Date of admission: 07/17/17 13:55 Expected date of discharge: 07/23/17 Attending physician: Jeffrey Jung MD Consults: 07/17/17 14:44 Consult Physician Urgent Consulting Provider: Cheli Szymanski Consult Reason/Comments: Psychosis Do you want consulting provider notified?: Yes 07/18/17 10:52 Consult Physician Routine Consulting Provider: John Montesinos Consult Reason/Comments: cholecystitis Do you want consulting provider notified?: Yes 07/22/17 14:47 Consult Physician Urgent Consulting Provider: Dante Hale Consult Reason/Comments: family requested 2nd opinion Do you want consulting provider notified?: Already Contacted Primary care physician: Abhinav Case - Petros Diagnosis(es) (1) Cholecystitis Current Visit: Yes Status: Acute (2) Urinary tract infection Current Visit: Yes Status: Acute (3) Back pain Current Visit: Yes Status: Acute (4) Acute psychosis Current Visit: Yes Status: Acute Hospital Course: This is 46-year-old male that was brought in by his family member. This patient was started. Patient with active psychosis and delusions. Patient has stated that he was starting himself so that the pupils are watching him will let go. He was dehydrated Coumadin. She was vomiting every time he ate. Cholecystitis. Dr. Montesinos did evaluate the patient and didn't performed laparoscopic cholecystectomy on 07/21/2017. Postoperatively the patient has been doing well. Tolerated. Has had bowel movements. No fevers. Patient medically has was considered stable to be discharged. The family had concern regarding his psychosis and delusions. So initially Dr. Mcdaniel had evaluated patient and he did not allow her to talk to him. But she was she was able to see she did not feel that patient had any Merritts to be admitted to inpatient psych. Family was concerned and asked for second opinion and Dr. Choudhary, and evaluate patient. Upon his evaluation patient was more acceptable to being so patient will be admitted to inpatient psych at this time to the psychiatric unit. Igen:alert and oriented lungs:clear to auscultation heart:s1s2 abdomen:soft and depressible,non tender ext:no edema I did discuss with patient with family at bedside including brother and mother. Patient acceptably discharged to psychiatric unit. Patient will be evaluated there and treated with DrHenri by Dr. Choudhary. Initially discharge stable consult is Dr. Montesinos and Dr Choudhary Discharge time 33 minutes Patient Condition at Discharge: Stable Plan - Discharge Summary New Discharge Prescriptions: Continue Doxazosin [Cardura] 1 mg PO DAILY Morphine Sulfate [Morphine Sulfate ER] 30 mg PO TID Discontinued predniSONE 12.5 mg PO DAILY Discharge Medication List Doxazosin [Cardura] 1 mg PO DAILY 07/17/17 [History] Morphine Sulfate [Morphine Sulfate ER] 30 mg PO TID 07/17/17 [History] Follow up Appointment(s)/Referral(s): Brigitte Barnes MD [STAFF PHYSICIAN] - 08/18/17 12:45 pm [facility], [NON-STAFF] - Abhinav Case DO [Primary Care Provider] - 1-2 days John Montesinos MD [STAFF PHYSICIAN] - 07/24/17 Harrison Ramos MD [REFERRING] - 1 Week Activity/Diet/Wound Care/Special Instructions: no tub bath Shower daily No lifting greater than 4 pounds No driving while taking pain medication [place] Notify surgical attending of any redness at site fever chills Discharge Disposition: TRANSFER TO PSYCH HOSP/UNIT
[2017-07-23 15:24] VITALS: RESP 18
[2017-07-23] MEDS ORDERED: PALIPERIDONE 6 MG TAB.ER.24 PO SCH (16:15)
[2017-07-23] MEDS ORDERED: MORPHINE SULFATE 10 MG/ML SYRINGE IVP ONE (17:17)
--- NOTE | 2017-07-23 17:58 | P.PN ---
Progress Note - Text Progress Note Date: 07/23/17 Interval History: Patient interviewed at bedside with family x 2. Patient states that he spent yesterday thinking about his discussion and is willing to entertain the idea that at least part of his delusion of being monitored is false if imaging of his head is performed to rule out metal, or metal devices embedded in his brain. He states that if no such objects are found, he will have to concede that he does perhaps have a mental illness, and he states he will be more willing to consider treatment of such. CT of head without contrast ordered. As patient had no former imaging in the past and such is recommend prior to giving an official diagnosis of schizophrenia, such was deemed medically necessary During follow up with family/patient, it is reported that he was shocked at negative results of CT. Patient states he is willing to consent for voluntary admission and agreeable to trial of Invega followed by Nessa Lowe. Mental Status Exam: Appearance: alert laying in bed, well groomed, appears stated age Behavior: psychomotor agitation+, no abnormal movements, fair eye contact Attitude: cooperative Speech: normal rate, rhythm, fluency, articulation, volume, and prosody; primary language: [place] Mood: euthymic Affect: congruent, reactive Thought processes: linear Thought content: patient does not appear to be responding to internal stimuli; patient denies auditory and visual hallucinations, no delusional behavior appreciate at current time Insight: fair Judgment: fair Cognitive: oriented to all 3 spheres, average intelligence Recommendations: Agree with Dr. Szymanski's assessment and recommendations: Patient has medical decision making capacity and may consent or decline medical or mental health treatment despite still endorsing some psychotic symptoms Brief family meeting with patient and family x 2, patient requested imaging of his brain to rule out insertion of foreign bodies with the belief that if such results were negative, he would accept "that something is definitely wrong with my mind" and consent for treatment. Given a non-contrast CT is recommended in the workup before a definitive diagnosis of Schizophrenia is established, CT brain without contrast ordered and results reviewed with patient. CT negative. Patient was able to accept this, and requested help understanding his mental status. He endorses no AVH at present, but reports frequent AH that fuel his previous delusions that are now best categorized as "overvalued ideas." Patient does not meet criteria for involuntary admission to mental health Patient was offered and accepted voluntary admission to [facility] Start Invega 6-mg PO QAM x 2 days then transition to Invega Sustenna 234-mg IM pending tolerability of oral doses Psychiatry will follow, if you have questions or concerns please feel free to contact: ~ Dante Hale DO [phone] (pager)
[2017-07-24] MEDS: MORPHINE SULFATE ER 30 MG TABLET PO SCH (00:20)
[2017-07-24 00:22] VITALS: BP 112/69; PULSE 96; TEMP 97.4
== END 2017-07-24 00:42 | DRG 853 ==
LOC: EC 10:50 → 4MS4W 13:55
PROVIDERS: ADMIT Family Medicine; ATTEND Family Medicine
PROC: 0FT44ZZ Resection of Gallbladder, Percutaneous Endoscopic Approach (ICD-10-PCS; principal; 2017-07-21 11:15)
DX: A41.9 Sepsis, unspecified organism (principal); K72.00 Acute and subacute hepatic failure without coma; E87.1 Hypo-osmolality and hyponatremia; K80.00 Calculus of gallbladder with acute cholecystitis without obstruction; N39.0 Urinary tract infection, site not specified; F23 Brief psychotic disorder; E86.0 Dehydration; E87.6 Hypokalemia; K76.0 Fatty (change of) liver, not elsewhere classified; T73.0XXA Starvation, initial encounter; Z82.49 Family history of ischemic heart disease and other diseases of the circulatory system; Z87.891 Personal history of nicotine dependence; Z79.899 Other long term (current) drug therapy
CPT/HCPCS: 36415; 70450; 71020; 74177; 76705; 80053; 80074; 80306; 80320; 81001; 82075; 82103; 82330; 82390; 82550; 82728; 83516; 83540; 83550; 83690; 83735; 84100; 84132; 84165; 84443; 85025; 85610; 85730; 86038; 87040; 87086; 87390; 88304; 93005; 94760; 96361; 96365; 96375; 99285

== ENCOUNTER 2017-07-24 00:18 | Inpatient (IN) | payer MEDICARE ==
[2017-07-24] MEDS ORDERED: MAGNESIUM HYDROXIDE 2,400 MG/10 ML CUP PO PRN (04:16)
[2017-07-24] MEDS ORDERED: ACETAMINOPHEN TAB 325 MG TAB PO PRN ×2 (04:16→04:55)
[2017-07-24] MEDS ORDERED: MAG HYDROX/AL HYDROX/SIMETH 30 ML CUP PO PRN (04:16)
[2017-07-24] MEDS ORDERED: IBUPROFEN 400 MG TAB PO PRN (04:23)
[2017-07-24] MEDS ORDERED: ONDANSETRON 4 MG TAB PO PRN (04:24)
--- NOTE | 2017-07-24 07:42 | P.HPMEDMHU ---
History of Present Illness H&P Date: 07/24/17 Chief Complaint: Hearing voices Patient is a 46-year-old male who lives alone states he was hearing voices so he stopped eating in an effort quelled voices. He states he had emesis for approximately 1 month was brought to the emergency room by family and admitted for further workup patient was determined to have cholecystitis and is currently status post cholecystectomy. Once he was medically stable he was determined to need ongoing psychiatric treatment so he was transferred to psychiatry for further workup and management. At the time of evaluation he denies any nausea or vomiting. He states he has chronic back pain which limits his ability to move so he is primarily in a wheelchair. He states he lost a significant amount of weight over 40 pounds but has since regained about 27. He currently denies any nausea or vomiting. Review of Systems Complete review of systems negative other than the stated per HPI Constitutional: Denies chills, Denies fever Past Medical History Past Medical History: No Reported History (. He looks old) Additional Past Medical History / Comment(s): back pain History of Any Multi-Drug Resistant Organisms: None Reported Past Surgical History: Back Surgery, Tonsillectomy Additional Past Surgical History / Comment(s): Cholecystectomy Past Anesthesia/Blood Transfusion Reactions: No Reported Reaction Past Psychological History: Depression, Schizophrenia Smoking Status: Former smoker Past Alcohol Use History: None Reported Past Drug Use History: None Reported - Past Family History Mother Family Medical History: Rheumatoid Arthritis (RA) Father Family Medical History: Hypertension, Skin Disorder Medications and Allergies Home Medications Medication Instructions Recorded Confirmed Type Doxazosin [Cardura] 1 mg PO DAILY 07/17/17 07/24/17 History Morphine Sulfate [Morphine Sulfate 30 mg PO TID 07/17/17 07/24/17 History ER] Allergies Allergy/AdvReac Type Severity Reaction Status Date / Time No Known Allergies Allergy Verified 07/24/17 07:24 Physical Exam Vitals: Vital Signs Temp Pulse Resp BP 07/24/17 02:10 97.9 F 108 H 18 129/76 Intake and Output 07/23/17 07/24/17 07/24/17 22:59 06:59 14:59 Other: Weight 81.219 kg - Constitutional General appearance: cooperative, no acute distress - EENT Eyes: PERRLA - Neck Neck: normal ROM - Respiratory Respiratory: negative: CTA, diminished, dullness, rales, rhonchi, wheezing, prolonged expiration, prolonged inspiration, other - Cardiovascular Rhythm: regular (facilities not coming in) Heart sounds: normal: S1, S2 - Gastrointestinal General gastrointestinal: soft (Appropriately tender, Steri-Strips present) - Integumentary Integumentary: normal, normal turgor - Musculoskeletal Musculoskeletal: strength equal bilaterally - Psychiatric Psychiatric: A&O x's 3 Cranial Nerve Examination - Cranial Nerves Cranial Nerve II- Optic: Intact Cranial Nerve III- Oculomotor: Intact Cranial Nerve IV- Trochlear: Intact Cranial Nerve V- Trigeminal: Intact Cranial Nerve - Abducens: Intact Cranial Nerve VII- Facial: Intact Cranial Nerve VIII- Auditory: Intact Cranial Nerve IX- Glossopharyngeal: Intact Cranial Nerve X- Vagus: Intact Cranial Nerve XI- Accessory: Intact Cranial Nerve XII- Hypoglossal: Intact Assessment and Plan (1) Cholecystitis Narrative/Plan: Resolved, status post cholecystectomy is in any antibiotics, has completed his course of antibiotics surgical site appears clear and clean recommending local wound care they wanted to know which surgery Current Visit: No Status: Acute Code(s): K81.9 - CHOLECYSTITIS, UNSPECIFIED SNOMED Code(s): 36097855 (2) Schizophrenia, chronic with acute exacerbation Narrative/Plan: Continue per psychiatry Current Visit: No Status: Acute Code(s): F20.9 - SCHIZOPHRENIA, UNSPECIFIED SNOMED Code(s): 803904231 (3) Back pain Narrative/Plan: Chronic back pain, continue current level of activity, outpatient treatment is needed Current Visit: No Status: Acute Code(s): M54.9 - DORSALGIA, UNSPECIFIED SNOMED Code(s): 726408973
[2017-07-24] MEDS: PANTOPRAZOLE 40 MG TABLET PO SCH (08:17)
[2017-07-24] MEDS: POTASSIUM CHLORIDE ER 20 MEQ TAB.ER PO SCH (08:17)
[2017-07-24] MEDS: PALIPERIDONE 6 MG TAB.ER.24 PO SCH (08:17)
[2017-07-24] MEDS: DOXAZOSIN 1 MG TAB PO SCH (08:17)
[2017-07-24] MEDS: DOCUSATE 100 MG CAP PO SCH ×2 (08:17→21:29)
[2017-07-24] MEDS: CEPHALEXIN 500 MG CAP PO SCH ×2 (08:17→21:29)
[2017-07-24] MEDS: BISACODYL 5 MG TABLET.DR PO PRN (08:20)
[2017-07-24] MEDS: MORPHINE SULFATE ER 30 MG TABLET PO SCH ×2 (09:00→16:39)
[2017-07-24 09:30] LABS: Basophils % (A) 0 %; CH 28.5; CHCM 31.7; Eosinophils # (A) 0.1 k/uL (0-0.7); Eosinophils % (A) 2 %; HCT 33.4 % (39.0-53.0); HDW 2.93; HGB 10.5 gm/dL (13.0-17.5); Hypochromasia Slight; Luc # (Auto) 0.11; Luc % (Auto) 1; Lymphocytes # (A) 1.3 k/uL (1.0-4.8); Lymphocytes % (A) 17 %; MCH 28.5 pg (25.0-35.0); MCHC 31.6 g/dL (31.0-37.0); MCV 90.3 fL (80.0-100.0); Mean Platelet Volume 6.3; Monocytes # (A) 0.4 k/uL (0-1.0); Monocytes % (A) 5 %; Neutrophils # (A) 5.7 k/uL (1.3-7.7); Neutrophils % (A) 74 %; RBC 3.69 m/uL (4.30-5.90); RDW 14.3 % (11.5-15.5); WBC 7.7 k/uL (3.8-10.6); WBC (Perox) 7.69
[2017-07-24 09:46] LABS: ALT 29 U/L (21-72); AST 19 U/L (17-59); Alkaline Phosphatase 386 U/L (38-126); Anion Gap 10 mmol/L; Blood Urea Nitrogen 10 mg/dL (9-20); Calcium 8.4 mg/dL (8.4-10.2); Carbon Dioxide 23 mmol/L (22-30); Chloride 106 mmol/L (98-107); Glucose 136 mg/dL (74-99); Non-African American GFR(MDRD) >60 (>60 ml/min/1.73 sqM); Potassium 4.3 mmol/L (3.5-5.1); Sodium 139 mmol/L (137-145); Total Bilirubin 0.7 mg/dL (0.2-1.3); Total Protein 5.5 g/dL (6.3-8.2)
[2017-07-24] MEDS: MELOXICAM 7.5 MG TAB PO SCH (21:29)
--- NOTE | 2017-07-24 23:02 | P.HP ---
Psychiatric H&P - . H&P Date: 07/24/17 History & Physical: Alprazolam 1 mg 07/23/17 18:17 07/24/17 21:11 Xanax PO 1 mg QID PRN Administration Amitriptyline HCl 25 mg 07/23/17 22:00 07/24/17 21:09 Elavil PO 25 mg TID HANSA Administration Allergies Allergy/AdvReac Type Severity Reaction Status Date / Time No Known Allergies Allergy Verified 07/24/17 07:24 Vital Signs Temp 97.9 F 07/24/17 02:10 Pulse 108 H 07/24/17 02:10 Resp 18 07/24/17 02:10 BP 129/76 07/24/17 02:10 Pulse Ox Intake & Output 07/24/17 07/24/17 07/25/17 06:59 18:59 06:59 Weight 81.219 kg Laboratory Last Values WBC 7.7 k/uL (3.8-10.6) 07/24/17 08:51 RBC 3.69 m/uL (4.30-5.90) L 07/24/17 08:51 Hgb 10.5 gm/dL (13.0-17.5) L 07/24/17 08:51 Hct 33.4 % (39.0-53.0) L 07/24/17 08:51 MCV 90.3 fL (80.0-100.0) 07/24/17 08:51 MCH 28.5 pg (25.0-35.0) 07/24/17 08:51 MCHC 31.6 g/dL (31.0-37.0) 07/24/17 08:51 RDW 14.3 % (11.5-15.5) 07/24/17 08:51 Plt Count 394 k/uL (150-450) 07/24/17 08:51 Neutrophils % 74 % 07/24/17 08:51 Lymphocytes % 17 % 07/24/17 08:51 Monocytes % 5 % 07/24/17 08:51 Eosinophils % 2 % 07/24/17 08:51 Basophils % 0 % 07/24/17 08:51 Neutrophils # 5.7 k/uL (1.3-7.7) 07/24/17 08:51 Lymphocytes # 1.3 k/uL (1.0-4.8) 07/24/17 08:51 Monocytes # 0.4 k/uL (0-1.0) 07/24/17 08:51 Eosinophils # 0.1 k/uL (0-0.7) 07/24/17 08:51 Basophils # 0.0 k/uL (0-0.2) 07/24/17 08:51 Hypochromasia Slight 07/24/17 08:51 Sodium 139 mmol/L (137-145) 07/24/17 08:51 Potassium 4.3 mmol/L (3.5-5.1) 07/24/17 08:51 Chloride 106 mmol/L (98-107) 07/24/17 08:51 Carbon Dioxide 23 mmol/L (22-30) 07/24/17 08:51 Anion Gap 10 mmol/L 07/24/17 08:51 BUN 10 mg/dL (9-20) 07/24/17 08:51 Creatinine 0.77 mg/dL (0.66-1.25) 07/24/17 08:51 Est GFR (MDRD) Af Amer >60 (>60 ml/min/1.73 sqM) 07/24/17 08:51 Est GFR (MDRD) Non-Af >60 (>60 ml/min/1.73 sqM) 07/24/17 08:51 Glucose 136 mg/dL (74-99) H 07/24/17 08:51 Calcium 8.4 mg/dL (8.4-10.2) 07/24/17 08:51 Total Bilirubin 0.7 mg/dL (0.2-1.3) 07/24/17 08:51 AST 19 U/L (17-59) 07/24/17 08:51 ALT 29 U/L (21-72) 07/24/17 08:51 Alkaline Phosphatase 386 U/L (38-126) H 07/24/17 08:51 Total Protein 5.5 g/dL (6.3-8.2) L 07/24/17 08:51 Albumin 2.9 g/dL (3.5-5.0) L 07/24/17 08:51 TSH 1.160 mIU/L (0.465-4.680) 07/24/17 08:51 HPI: (07/24/2017) Xiang Kaur is 46 year old male with past psychiatric history now best categorized as schizophrenia. Patient recently had a medical hospitalization below after starving self and agreed to voluntary admission. He has been tolerating Invega well , plan is to switch to Invega SUstenna. At this time, patient has been participating in some groups, denies SI/HI/AVH. Psychiatry Consult (second opinion): (07/22/2017) Xiang Kaur is 46 year old male with past psychiatric history of a psychotic disorder most likely schizophrenia. Prior to interview, his medical record was reviewed including past admission in 2013, Dr. Mejia's evaluation and Dr. Szymanski's noted below. Patient consented for a brief evaluation. Patient is floridly delusional although he able to express now that while he still believes he is being monitored, and has been injected with probes and such he no longer has a desire to starve himself. He says because he no longer feels such is necessary he has been eating in the hospital. He knows his beliefs are not understood by others, but he is able to verbalize that starving himself was harmful to his physical and mental health. Patient has been attending to ADL's in hospital setting. For the patient to meet criteria for involuntary hospitalization there would have to be evidence at present that patient is an eminent risk to himself if he leaves the hospital. Given the patient has been eating and drinking well without prompt for several days this is not the case. Furthermore, while the patient's starvation was an action taken due to his psychosis, medical illness must be taken into context as well. When asked what happened when he tried to eat during said period of starvation, patient states he would vomit which he interpreted as reinforcement to his delusion. During this hospitalization, patient was diagnosed with chronic cholecystitis with cholelithiasis and after cholecystectomy patient has not refused any meals. It possible that this played a major contributing role in patient's previous starvation and now that patient doesn't get ill eating, he is more likely to do so. Of note: 52 days is ~7.5 weeks. There have been unsubstantiated reports of people living for up to 8-weeks without food, but for the overwhelming majority of the population, total starvation will be achieved in 3-4 weeks. Psychiatry Consult: (Dr. Szymanski, 07/22/2017): Spoke with Dr. Robins regarding Mr. Kaur. He informed me that patient does report persecutory delusions about being watched and arrows being implanted in his head. According to documentation, patient stated that he was not starving himself in a suicide attempt, but instead to see if the people watching him would go away. He has not reported any thoughts of self-harm at this time. Also, no reported threats of harming others. Per discussion with staff, patient has been eating well on the unit and communicating effectively. He has refused to see psychiatry and continues to refuse to talk with me today. I did speak with patient's brother, informing him that I could not give him any information regarding patient's treatment as I do not have consent from the patient. However, I did listen to any information that the brother could provide. He stated that his concern is if patient's mental state will decline when he returns to his home. He reported that patient's home was not in sanitary condition and according to Dr. Robins, the family had to clean patient' s home during his hospital stay. Unfortunately, pt is not willing to undergo psychiatric treatment on a voluntary basis. I do not believe he meets criteria at this time for admission on an involuntary basis as he is not an immediate danger to himself or others. Also, it is my understanding that patient has been eating regularly during hospitalization and should be able to take care of himself. I would recommend that patient's family explore alternative housing options, such as an adult foster care facility so that patient can be monitored more closely and soothe their concerns about him living alone. They can find more information regarding placement at www.[place].gov/[place]. It would be beneficial for patient to follow-up with outpatient psychiatric services, as well. Also, the medical SW may be able to assist in that matter. It is also my understanding that a second opinion was requested and another provider from psychiatry will evaluate patient and provide further recommendations. PSYCHIATRIC HISTORY: history of several hospitalizations, diagnosed with a psychotic disorder, off meds x 5+ years PMH: Past Medical History: No Reported History (. He looks old) Additional Past Medical History / Comment(s): back pain History of Any Multi-Drug Resistant Organisms: None Reported Past Surgical History: Back Surgery, Tonsillectomy Additional Past Surgical History / Comment(s): Cholecystectomy Past Anesthesia/Blood Transfusion Reactions: No Reported Reaction Past Psychological History: Depression, Schizophrenia Smoking Status: Former smoker Past Alcohol Use History: None Reported Past Drug Use History: None Reported HOME MEDICATIONS: Medication Instructions Recorded Confirmed Doxazosin [Cardura] 1 mg PO DAILY 07/17/17 07/24/17 Morphine Sulfate [Morphine Sulfate 30 mg PO TID 07/17/17 07/24/17 ER] CHEMICAL DEPENDENCY HISTORY: none STRENGTHS/WEAKNESSES: supportive family, stable income, stable housing / medical frailty MENTAL STATUS EXAM: Appearance: alert laying in bed, well groomed, appears older than chronological age Behavior: psychomotor agitation+++, no abnormal movements, fair eye contact Attitude: cooperative Speech: normal rate, rhythm, fluency, articulation, volume, and prosody; primary language: [place] Mood: mildly anxious Affect: congruent, reactive Thought processes: linear Thought content: patient does not appear to be responding to internal stimuli; patient denies auditory and visual hallucinations, no delusional behavior appreciate at current time Insight: fair Judgment: fair Cognitive: oriented to all 3 spheres, average intelligence Assessment and Plan (1) Schizophrenia Narrative/Plan: started on Invega 6-mg PO on 07/22/2017 tolerating well with no adverse or side effects start Invega Sustenna 234-mg IM today Current Visit: No Status: Acute Priority: High Code(s): F20.9 - SCHIZOPHRENIA, UNSPECIFIED SNOMED Code(s): 43083542 Plan: started on Invega 6-mg PO on 07/22/2017 tolerating well with no adverse or side effects start Invega Sustenna 234-mg IM today Time with Patient: Greater than 30
[2017-07-25] MEDS: MORPHINE SULFATE ER 30 MG TABLET PO SCH ×3 (00:47→15:58)
[2017-07-25] MEDS: PANTOPRAZOLE 40 MG TABLET PO SCH (07:58)
[2017-07-25] MEDS: CEPHALEXIN 500 MG CAP PO SCH ×2 (07:59→21:22)
[2017-07-25] MEDS: DOCUSATE 100 MG CAP PO SCH ×2 (08:00→21:22)
[2017-07-25] MEDS: DOXAZOSIN 1 MG TAB PO SCH (08:00)
[2017-07-25] MEDS: MELOXICAM 7.5 MG TAB PO SCH ×2 (08:00→21:21)
[2017-07-25] MEDS: POTASSIUM CHLORIDE ER 20 MEQ TAB.ER PO SCH (08:01)
[2017-07-25] MEDS: BISACODYL 5 MG TABLET.DR PO PRN (08:01)
[2017-07-25] MEDS: PALIPERIDONE 6 MG TAB.ER.24 PO SCH (08:01)
[2017-07-25] MEDS ORDERED: PALIPERIDONE IM 234 MG/1.5 ML SYG IM STA (13:22)
[2017-07-25 19:12] LABS: Basophils % (A) 0 %; CH 28.2; CHCM 31.4; Eosinophils # (A) 0.1 k/uL (0-0.7); Eosinophils % (A) 2 %; HCT 29.8 % (39.0-53.0); HDW 2.82; HGB 9.2 gm/dL (13.0-17.5); Hypochromasia Slight; Luc # (Auto) 0.12; Luc % (Auto) 2; Lymphocytes # (A) 1.3 k/uL (1.0-4.8); Lymphocytes % (A) 18 %; MCV 90.3 fL (80.0-100.0); Mean Platelet Volume 6.5; Monocytes # (A) 0.3 k/uL (0-1.0); Monocytes % (A) 5 %; Neutrophils # (A) 5.4 k/uL (1.3-7.7); Neutrophils % (A) 74 %; RDW 14.8 % (11.5-15.5); WBC 7.3 k/uL (3.8-10.6)
[2017-07-25 19:16] LABS: ALT 30 U/L (21-72); AST 23 U/L (17-59); Alkaline Phosphatase 289 U/L (38-126); Anion Gap 9 mmol/L; Blood Urea Nitrogen 13 mg/dL (9-20); Calcium 8.3 mg/dL (8.4-10.2); Carbon Dioxide 24 mmol/L (22-30); Chloride 108 mmol/L (98-107); Glucose 123 mg/dL (74-99); Non-African American GFR(MDRD) >60 (>60 ml/min/1.73 sqM); Potassium 4.3 mmol/L (3.5-5.1); Sodium 141 mmol/L (137-145); Total Bilirubin 0.5 mg/dL (0.2-1.3); Total Protein 5.1 g/dL (6.3-8.2)
[2017-07-26] MEDS: MORPHINE SULFATE ER 30 MG TABLET PO SCH ×4 (00:22→23:50)
[2017-07-26] MEDS: DOXAZOSIN 1 MG TAB PO SCH (08:17)
[2017-07-26] MEDS: MELOXICAM 7.5 MG TAB PO SCH ×2 (08:17→21:45)
[2017-07-26] MEDS: PANTOPRAZOLE 40 MG TABLET PO SCH (08:19)
[2017-07-26] MEDS: POTASSIUM CHLORIDE ER 20 MEQ TAB.ER PO SCH (08:19)
[2017-07-26] MEDS: CEPHALEXIN 500 MG CAP PO SCH ×2 (08:19→21:45)
[2017-07-26] MEDS: PALIPERIDONE 6 MG TAB.ER.24 PO SCH (08:20)
[2017-07-26] MEDS: DOCUSATE 100 MG CAP PO SCH ×2 (08:20→21:45)
--- NOTE | 2017-07-26 17:00 | P.PN ---
Progress Note - Text Progress Note Date: 07/25/17 Vital Signs: Temp 98.2 F 07/26/17 00:23 Pulse 126 H 07/26/17 16:10 Resp 14 07/26/17 15:15 BP 137/74 07/26/17 16:10 Pulse Ox Iintake & Output: 07/25/17 07/26/17 07/26/17 18:59 06:59 18:59 Weight 81.193 kg 87.5 kg Laboratory Results: 07/25/17 07/25/17 18:36 18:36 WBC 7.3 RBC 3.30 L Hgb 9.2 L Hct 29.8 L MCV 90.3 MCH 28.0 MCHC 31.0 RDW 14.8 Plt Count 432 Neutrophils % 74 Lymphocytes % 18 Monocytes % 5 Eosinophils % 2 Basophils % 0 Neutrophils # 5.4 Lymphocytes # 1.3 Monocytes # 0.3 Eosinophils # 0.1 Basophils # 0.0 Hypochromasia Slight Sodium 141 Potassium 4.3 Chloride 108 H Carbon Dioxide 24 Anion Gap 9 BUN 13 Creatinine 0.80 Est GFR (MDRD) Af Amer >60 Est GFR (MDRD) Non-Af >60 Glucose 123 H Calcium 8.3 L Total Bilirubin 0.5 AST 23 ALT 30 Alkaline Phosphatase 289 H Total Protein 5.1 L Albumin 2.7 L Interval History: Patient interviewed on unit. Patient continues to have difficulty ambulating with cane and has been using his wheelchair to traverse the unit. Patient's physical health continues to improve but he is still sickly at times. Patient continues to be floridly delusional but remains no danger to self or others. Mental Status Exam: Appearance: alert, hygiene intact, appears stated age, steady gait Behavior: psychomotor agitation+++m no abnormal movements, fair eye contact Attitude: cooperative Speech: normal rate, rhythm, fluency, articulation, volume, and prosody; primary language: [place] Mood: euthymic Affect: congruent, reactive Thought processes: linear, organized Thought content: patient does not appear to be responding to internal stimuli; patient denies auditory and visual hallucinations, no delusions appreciated at this time although were reported by staff Insight: fair Judgment: fair Cognitive: oriented to all 3 spheres, average intelligence Plan: Continue hospitalization, provisional discharge 07/27/2017 Patient received Invega Sustenna 234-mg IM on 07/25/2017 No adverse reactions or side effects to medication or at injection site Consider PT/OT consults, will discuss with Medicine us
--- NOTE | 2017-07-26 17:19 | P.PN ---
Progress Note - Text Progress Note Date: 07/26/17 Vital Signs: Temp 98.2 F 07/26/17 00:23 Pulse 126 H 07/26/17 16:10 Resp 14 07/26/17 15:15 BP 137/74 07/26/17 16:10 Pulse Ox Intake & Output: 07/25/17 07/26/17 07/26/17 18:59 06:59 18:59 Weight 81.193 kg 87.5 kg Laboratory Results: 07/25/17 07/25/17 18:36 18:36 WBC 7.3 RBC 3.30 L Hgb 9.2 L Hct 29.8 L MCV 90.3 MCH 28.0 MCHC 31.0 RDW 14.8 Plt Count 432 Neutrophils % 74 Lymphocytes % 18 Monocytes % 5 Eosinophils % 2 Basophils % 0 Neutrophils # 5.4 Lymphocytes # 1.3 Monocytes # 0.3 Eosinophils # 0.1 Basophils # 0.0 Hypochromasia Slight Sodium 141 Potassium 4.3 Chloride 108 H Carbon Dioxide 24 Anion Gap 9 BUN 13 Creatinine 0.80 Est GFR (MDRD) Af Amer >60 Est GFR (MDRD) Non-Af >60 Glucose 123 H Calcium 8.3 L Total Bilirubin 0.5 AST 23 ALT 30 Alkaline Phosphatase 289 H Total Protein 5.1 L Albumin 2.7 L Interval History: Patient interviewed privately at bedside. He reports no notable response from Invega Mynor but denies any negative or adverse reaction. Patient appears and sounds dismayed. Reminded patient that it will take the medicine a few weeks to reach full effect. Patient voiced understanding. New complaint of left ear pain and minor swelling on left but not right side of face. Face on left side is slightly erythematous, slightly swollen. Collateral: Tevin Kaur ([phone]) Patient's brother called unit and requested to speak with attending. Brother expressed concerns about patient supervision post discharge. Discussed with brother that patient was going to be setup for home health, home PT, and home OT as he transitions back into independent living. Brother was comfortable with this relay of updates. No other concerns voiced. Mental Status Exam: Appearance: alert, hygiene intact, appears stated age, steady gait Behavior: psychomotor agitation+++m no abnormal movements, fair eye contact Attitude: cooperative Speech: normal rate, rhythm, fluency, articulation, volume, and prosody; primary language: Slovenian Mood: anxious Affect: congruent, reactive Thought processes: linear, organized Thought content: patient does not appear to be responding to internal stimuli; patient denies auditory and visual hallucinations, no delusions appreciated at this time although were reported by staff Insight: fair Judgment: fair Cognitive: oriented to all 3 spheres, average intelligence Plan: Continue hospitalization, provisional discharge 07/27/2017 Patient received Invega Sustenna 234-mg IM on 07/25/2017 No adverse reactions or side effects to medication or at injection site PT/OT consulted, will discuss with Medicine Medicine contacted for otoscopic exam of left ear
--- NOTE | 2017-07-26 18:47 | P.PN ---
Progress Note - Text Progress Note Date: 07/26/17 Called to evaluate Mr Kaur. Patient had been noticed to have tachycardia. Reviewed EKG which showed sinus tachycardia previous EKG unavilable. Patient says he has ear pain. Feels like left side heavy. lT EYE IS And when the toilet is flushed sounds very loud. Will check CBC,BMP, THRYOID PROFILE. Lt eyelid feels swollen. Ear exam showed no signs of infection. Will order cipro eye drops.
[2017-07-26 20:29] LABS: CH 28.3; CHCM 31.5; HCT 27.3 % (39.0-53.0); HDW 2.78; HGB 8.4 gm/dL (13.0-17.5); Hypochromasia Slight; MCH 27.9 pg (25.0-35.0); MCHC 30.8 g/dL (31.0-37.0); MCV 90.5 fL (80.0-100.0); Mean Platelet Volume 6.6; RBC 3.02 m/uL (4.30-5.90); RDW 15.1 % (11.5-15.5); WBC 7.6 k/uL (3.8-10.6)
[2017-07-26 20:30] LABS: Anion Gap 9 mmol/L; Blood Urea Nitrogen 13 mg/dL (9-20); Calcium 8.3 mg/dL (8.4-10.2); Carbon Dioxide 23 mmol/L (22-30); Chloride 108 mmol/L (98-107); Glucose 110 mg/dL (74-99); Non-African American GFR(MDRD) >60 (>60 ml/min/1.73 sqM); Potassium 4.6 mmol/L (3.5-5.1); Sodium 140 mmol/L (137-145)
[2017-07-26] MEDS ORDERED: diphenhydrAMINE 25 MG CAP PO STA (21:26)
[2017-07-26] MEDS: CIPROFLOXACIN 0.3% OPHTH SOLN 2.5 ML BTL BOTH EYES SCH ×2 (21:45→23:51)
[2017-07-27 03:28] LABS: Basophils % (A) 0 %; CH 28.4; CHCM 31.1; Eosinophils # (A) 0.2 k/uL (0-0.7); Eosinophils % (A) 2 %; HCT 30.3 % (39.0-53.0); HDW 2.74; HGB 9.4 gm/dL (13.0-17.5); Hypochromasia Slight; Luc # (Auto) 0.14; Luc % (Auto) 2; Lymphocytes # (A) 1.8 k/uL (1.0-4.8); Lymphocytes % (A) 20 %; MCH 28.4 pg (25.0-35.0); MCHC 30.9 g/dL (31.0-37.0); MCV 91.7 fL (80.0-100.0); Mean Platelet Volume 6.8; Monocytes # (A) 0.5 k/uL (0-1.0); Monocytes % (A) 5 %; Neutrophils # (A) 6.6 k/uL (1.3-7.7); Neutrophils % (A) 71 %; RDW 15.1 % (11.5-15.5); WBC 9.3 k/uL (3.8-10.6); WBC (Perox) 9.54
[2017-07-27] MEDS: CIPROFLOXACIN 0.3% OPHTH SOLN 2.5 ML BTL BOTH EYES SCH ×3 (06:47→11:42)
[2017-07-27 06:49] VITALS: BP 104/59; PULSE 117; RESP 20; TEMP 98.4
[2017-07-27 08:30] LABS: Anisocytosis Slight; Basophils % (A) 0 %; CH 29.6; CHCM 32.2; Eosinophils # (A) 0.1 k/uL (0-0.7); Eosinophils % (A) 1 %; HCT 29.7 % (39.0-53.0); HGB 9.2 gm/dL (13.0-17.5); Luc # (Auto) 0.11; Luc % (Auto) 1; Lymphocytes # (A) 1.7 k/uL (1.0-4.8); Lymphocytes % (A) 21 %; MCH 28.8 pg (25.0-35.0); MCHC 31.1 g/dL (31.0-37.0); MCV 92.4 fL (80.0-100.0); Monocytes # (A) 0.4 k/uL (0-1.0); Monocytes % (A) 5 %; Neutrophils # (A) 5.8 k/uL (1.3-7.7); Neutrophils % (A) 71 %; RBC 3.21 m/uL (4.30-5.90); RDW 16.4 % (11.5-15.5); WBC 8.1 k/uL (3.8-10.6); WBC (Perox) 8.32
[2017-07-27] MEDS: DOXAZOSIN 1 MG TAB PO SCH (08:32)
[2017-07-27] MEDS: MORPHINE SULFATE ER 30 MG TABLET PO SCH (08:33)
[2017-07-27] MEDS: PANTOPRAZOLE 40 MG TABLET PO SCH (08:34)
[2017-07-27] MEDS: POTASSIUM CHLORIDE ER 20 MEQ TAB.ER PO SCH (08:35)
[2017-07-27] MEDS: DOCUSATE 100 MG CAP PO SCH (08:35)
[2017-07-27] MEDS: CEPHALEXIN 500 MG CAP PO SCH (08:35)
== END 2017-07-27 13:45 | disposition home or self-care (01) | DRG 885 ==
LOC: 3MHU 00:49
PROVIDERS: ADMIT Psychiatry & Neurology Psychiatry; ATTEND Psychiatry & Neurology Psychiatry
DX: F20.9 Schizophrenia, unspecified (principal); F22 Delusional disorders; F32.9 Major depressive disorder, single episode, unspecified; M54.9 Dorsalgia, unspecified; R26.2 Difficulty in walking, not elsewhere classified; F50.89 Other specified eating disorder; R00.0 Tachycardia, unspecified; Z90.49 Acquired absence of other specified parts of digestive tract; Z87.891 Personal history of nicotine dependence; Z79.899 Other long term (current) drug therapy
CPT/HCPCS: 80048; 80053; 84439; 84443; 85025; 85027; 93005

== ENCOUNTER 2018-02-10 08:10 | Emergency (ER) | payer MEDICARE ==
[2018-02-10 08:21] VITALS: TEMP 98.8
--- NOTE | 2018-02-10 08:42 | ED ---
General Adult HPI - General Chief complaint: Arrhythmia/Palpitations Stated complaint: Arrhythmia Time Seen by Provider: 02/10/18 08:15 Source: patient, RN notes reviewed Mode of arrival: wheelchair Limitations: no limitations - History of Present Illness Initial comments: This is a 47-year-old male who presents emergency Department who has a past medical history significant for schizophrenia and chronic back pain. Patient comes in today stating that he's been off his schizophrenic medicines for a few months and today he was feeling a buzzing occasionally his heart like a cell phone ringing. Patient states he had come in because the voices in his head were telling them in. Brothers with the patient and brother states the patient is safe he is just having some increased hallucinations and he has an appointment Thursday to see a psychiatrist to go back on the medications. Patient denies any chest pain palpitations difficulty breathing or shortness of breath. Patient denies any abdominal pain patient denies nausea vomiting or diarrhea. Patient denies any recent fever chills or cough. Patient denies any swelling to the legs or calf tenderness. Patient admits he thinks it's just in his head but he wanted to reassure himself by come to the emergency department. - Related Data Previous Rx's Medication Instructions Recorded Morphine Sulfate ER [Ms Contin] 30 mg PO TID@0001,0800,1600 #42 07/27/17 tablet Allergies Allergy/AdvReac Type Severity Reaction Status Date / Time methadone AdvReac Swelling Verified 02/10/18 08:50 Review of Systems ROS Statement: Those systems with pertinent positive or pertinent negative responses have been documented in the HPI. ROS Other: All systems not noted in ROS Statement are negative. Past Medical History Past Medical History: No Reported History Additional Past Medical History / Comment(s): back pain, gall bladder History of Any Multi-Drug Resistant Organisms: None Reported Past Surgical History: Back Surgery, Tonsillectomy Additional Past Surgical History / Comment(s): Cholecystectomy Past Anesthesia/Blood Transfusion Reactions: No Reported Reaction Past Psychological History: Depression, Schizophrenia Smoking Status: Former smoker Past Alcohol Use History: None Reported Past Drug Use History: None Reported - Past Family History Mother Family Medical History: Pulmonary Embolus, Rheumatoid Arthritis (RA) Father Family Medical History: Hypertension, Pulmonary Embolus, Skin Disorder General Exam - General Exam Comments Initial Comments: GENERAL: Patient is well-developed and well-nourished. Patient is nontoxic and well- hydrated and is in mild distress. ENT: Neck is soft and supple. No significant lymphadenopathy is noted. Oropharynx is clear. Moist mucous membranes. Neck has full range of motion without eliciting any pain. EYES: The sclera were anicteric and conjunctiva were pink and moist. Extraocular movements were intact and pupils were equal round and reactive to light. Eyelids were unremarkable. PULMONARY: Unlabored respirations. Good breath sounds bilaterally. No audible rales rhonchi or wheezing was noted. CARDIOVASCULAR: There is a regular rate and rhythm without any murmurs gallops or rubs. Patient stated that the vibrations were going on when I was listening to him and looking at the monitor and there was no abnormality noted ABDOMEN: Soft and nontender with normal bowel sounds. No palpable organomegaly was noted. There is no palpable pulsatile mass. SKIN: Skin is clear with no lesions or rashes and otherwise unremarkable. NEUROLOGIC: Patient is alert and oriented x3. Cranial nerves II through XII are grossly intact. Motor and sensory are also intact. Normal speech, volume and content. Symmetrical smile. MUSCULOSKELETAL: Normal extremities with adequate strength and full range of motion. No lower extremity swelling or edema. No calf tenderness. LYMPHATICS: No significant lymphadenopathy is noted PSYCHIATRIC: Normal psychiatric evaluation. Limitations: no limitations Course Vital Signs 02/10/18 02/10/18 08:16 08:47 Temperature 98.8 F Pulse Rate 75 65 Respiratory 18 16 Rate Blood Pressure 209/86 167/83 O2 Sat by Pulse 96 100 Oximetry Medical Decision Making - Medical Decision Making EKG shows normal sinus rhythm at 60 bpm UT interval is 136 dresses 98 QT interval 418 QTC is 418. Patient's EKG shows no ST segment elevation or depression or T wave abnormalities are noted Chest x-ray shows no acute abnormality Patient Thinking he felt a vibration in his chest and when it occurred eliciting to his heart there was no change in the greater rhythm I looked at the monitor there was no change in the monitor. Patient then concluded that this is probably secondary to schizophrenia. Brother has an appointment for Thursday to say which she will be taking him to. - Lab Data Result diagrams: 02/10/18 08:40 02/10/18 08:40 Lab Results 02/10/18 02/10/18 02/10/18 Range/Units 08:40 08:40 08:40 WBC 9.3 (3.8-10.6) k/uL RBC 4.53 (4.30-5.90) m/uL Hgb 13.5 (13.0-17.5) gm/dL Hct 40.1 (39.0-53.0) % MCV 88.5 (80.0-100.0) fL MCH 29.9 (25.0-35.0) pg MCHC 33.8 (31.0-37.0) g/dL RDW 14.2 (11.5-15.5) % Plt Count 352 (150-450) k/uL Neutrophils % 74 % Lymphocytes % 19 % Monocytes % 4 % Eosinophils % 1 % Basophils % 1 % Neutrophils # 6.9 (1.3-7.7) k/uL Lymphocytes # 1.8 (1.0-4.8) k/uL Monocytes # 0.4 (0-1.0) k/uL Eosinophils # 0.1 (0-0.7) k/uL Basophils # 0.1 (0-0.2) k/uL PT (9.0-12.0) sec INR (<1.2) APTT (22.0-30.0) sec Sodium 144 (137-145) mmol/L Potassium 4.1 (3.5-5.1) mmol/L Chloride 105 (98-107) mmol/L Carbon Dioxide 24 (22-30) mmol/L Anion Gap 15 mmol/L BUN 21 H (9-20) mg/dL Creatinine 0.98 (0.66-1.25) mg/dL Est GFR (CKD-EPI)AfAm >90 (>60 ml/min/1.73 sqM) Est GFR (CKD-EPI)NonAf >90 (>60 ml/min/1.73 sqM) Glucose 98 (74-99) mg/dL Calcium 9.4 (8.4-10.2) mg/dL Magnesium 2.3 (1.6-2.3) mg/dL Total Bilirubin 0.5 (0.2-1.3) mg/dL AST 29 (17-59) U/L ALT 39 (21-72) U/L Alkaline Phosphatase 157 H (38-126) U/L Total Creatine Kinase 87 (55-170) U/L CK-MB (CK-2) <0.2 (0.0-2.4) ng/mL CK-MB (CK-2) Rel Index Troponin I <0.012 (0.000-0.034) ng/mL Total Protein 6.9 (6.3-8.2) g/dL Albumin 4.7 (3.5-5.0) g/dL Urine Opiates Screen (NotDetected) Ur Oxycodone Screen (NotDetected) Urine Methadone Screen (NotDetected) Ur Propoxyphene Screen (NotDetected) Ur Barbiturates Screen (NotDetected) U Tricyclic Antidepress (NotDetected) Ur Phencyclidine Scrn (NotDetected) Ur Amphetamines Screen (NotDetected) U Methamphetamines Scrn (NotDetected) U Benzodiazepines Scrn (NotDetected) Urine Cocaine Screen (NotDetected) U Marijuana (THC) Screen (NotDetected) 02/10/18 02/10/18 Range/Units 08:40 08:40 WBC (3.8-10.6) k/uL RBC (4.30-5.90) m/uL Hgb (13.0-17.5) gm/dL Hct (39.0-53.0) % MCV (80.0-100.0) fL MCH (25.0-35.0) pg MCHC (31.0-37.0) g/dL RDW (11.5-15.5) % Plt Count (150-450) k/uL Neutrophils % % Lymphocytes % % Monocytes % % Eosinophils % % Basophils % % Neutrophils # (1.3-7.7) k/uL Lymphocytes # (1.0-4.8) k/uL Monocytes # (0-1.0) k/uL Eosinophils # (0-0.7) k/uL Basophils # (0-0.2) k/uL PT 9.4 (9.0-12.0) sec INR 0.9 (<1.2) APTT 24.5 (22.0-30.0) sec Sodium (137-145) mmol/L Potassium (3.5-5.1) mmol/L Chloride (98-107) mmol/L Carbon Dioxide (22-30) mmol/L Anion Gap mmol/L BUN (9-20) mg/dL Creatinine (0.66-1.25) mg/dL Est GFR (CKD-EPI)AfAm (>60 ml/min/1.73 sqM) Est GFR (CKD-EPI)NonAf (>60 ml/min/1.73 sqM) Glucose (74-99) mg/dL Calcium (8.4-10.2) mg/dL Magnesium (1.6-2.3) mg/dL Total Bilirubin (0.2-1.3) mg/dL AST (17-59) U/L ALT (21-72) U/L Alkaline Phosphatase (38-126) U/L Total Creatine Kinase (55-170) U/L CK-MB (CK-2) (0.0-2.4) ng/mL CK-MB (CK-2) Rel Index Troponin I (0.000-0.034) ng/mL Total Protein (6.3-8.2) g/dL Albumin (3.5-5.0) g/dL Urine Opiates Screen Detected H (NotDetected) Ur Oxycodone Screen Not Detected (NotDetected) Urine Methadone Screen Not Detected (NotDetected) Ur Propoxyphene Screen Not Detected (NotDetected) Ur Barbiturates Screen Not Detected (NotDetected) U Tricyclic Antidepress Not Detected (NotDetected) Ur Phencyclidine Scrn Not Detected (NotDetected) Ur Amphetamines Screen Not Detected (NotDetected) U Methamphetamines Scrn Not Detected (NotDetected) U Benzodiazepines Scrn Not Detected (NotDetected) Urine Cocaine Screen Not Detected (NotDetected) U Marijuana (THC) Screen Detected H (NotDetected) Disposition Clinical Impression: Paranoid schizophrenia Disposition: HOME SELF-CARE Condition: Good Instructions: Palpitations (ED) Is patient prescribed a controlled substance at d/c from ED?: No Referrals: Abhinav Case DO [Primary Care Provider] - 1-2 days Time of Disposition: 09:50
[2018-02-10 08:49] VITALS: RESP 16
[2018-02-10 09:12] LABS: Basophils # (A) 0.1 k/uL (0-0.2); Basophils % (A) 1 %; Eosinophils # (A) 0.1 k/uL (0-0.7); Eosinophils % (A) 1 %; HCT 40.1 % (39.0-53.0); HGB 13.5 gm/dL (13.0-17.5); INR 0.9 (<1.2); Lymphocytes # (A) 1.8 k/uL (1.0-4.8); Lymphocytes % (A) 19 %; MCH 29.9 pg (25.0-35.0); MCHC 33.8 g/dL (31.0-37.0); MCV 88.5 fL (80.0-100.0); Mean Platelet Volume 7.3; Monocytes # (A) 0.4 k/uL (0-1.0); Monocytes % (A) 4 %; Neutrophils # (A) 6.9 k/uL (1.3-7.7); Neutrophils % (A) 74 %; Partial Thromboplastin Time 24.5 sec (22.0-30.0); Platelet Count 352 k/uL (150-450); Prothrombin Time 9.4 sec (9.0-12.0); RBC 4.53 m/uL (4.30-5.90); RDW 14.2 % (11.5-15.5); WBC 9.3 k/uL (3.8-10.6)
[2018-02-10 09:15] LABS: ALT 39 U/L (21-72); AST 29 U/L (17-59); Albumin 4.7 g/dL (3.5-5.0); Alkaline Phosphatase 157 U/L (38-126); Anion Gap 15 mmol/L; Blood Urea Nitrogen 21 mg/dL (9-20); Calcium 9.4 mg/dL (8.4-10.2); Carbon Dioxide 24 mmol/L (22-30); Chloride 105 mmol/L (98-107); Glucose 98 mg/dL (74-99); Magnesium 2.3 mg/dL (1.6-2.3); Potassium 4.1 mmol/L (3.5-5.1); Sodium 144 mmol/L (137-145); Total Bilirubin 0.5 mg/dL (0.2-1.3); Total Protein 6.9 g/dL (6.3-8.2)
--- NOTE | 2018-02-10 09:18 | XR ---
EXAMINATION TYPE: XR chest 2V DATE OF EXAM: 02/10/2018 COMPARISON: 07/17/2017 TECHNIQUE: PA and lateral views submitted. HISTORY: Dysrhythmia FINDINGS: The lungs are clear and there is no pneumothorax, pleural effusion, or focal pneumonia. IMPRESSION: 1. No acute process.
[2018-02-10 09:28] LABS: Creatine Kinase 87 U/L (55-170)
[2018-02-10 09:37] LABS: Amphetamine Screen,Urine Not Detected (NotDetected); Barbiturate Screen,Urine Not Detected (NotDetected); Benzodiazepines Screen,Urine Not Detected (NotDetected); Cocaine Screen,Urine Not Detected (NotDetected); Methadone Screen, Urine Not Detected (NotDetected); Opiate Screen,Urine Detected (NotDetected); Oxycodone Screen, Urine Not Detected (NotDetected); Phencyclidine Screen,Urine Not Detected (NotDetected); Tricyclic Antidepressant,Urine Not Detected (NotDetected); Urn Cannabinoid Scrn Detected (NotDetected)
[2018-02-10 09:40] LABS: Creatine Kinase MB <0.2 ng/mL (0.0-2.4); Troponin I <0.012 ng/mL (0.000-0.034)
[2018-02-10 09:53] VITALS: BP 134/74; PULSE 62
== END 2018-02-10 10:00 | disposition home or self-care (01) ==
LOC: EC 08:10
DX: F20.0 Paranoid schizophrenia (principal); Z87.891 Personal history of nicotine dependence; Z88.5 Allergy status to narcotic agent; Z82.49 Family history of ischemic heart disease and other diseases of the circulatory system
CPT/HCPCS: 36415; 71046; 80053; 80306; 82550; 82553; 83735; 84484; 85025; 85610; 85730; 93005; 99285